=== PATIENT | female | born 1945 | race Caucasian/White ===

== ENCOUNTER → 2016-06-22 | Outpatient (CLI) | payer MEDICARE, OTHER ==
--- NOTE | 2016-06-22 22:44 | WWHP ---
DATE OF DICTATION: 06/22/2016 CHIEF COMPLAINT: The patient is here for her routine gynecologic exam. HISTORY OF PRESENT ILLNESS: This is a 71-year-old G3, P2-0-1-2 with an LMP of 2001. The patient is on low-dose HRT and denies any postmenopausal bleeding. She states she has initiated a wean to try to gradually discontinue HRT. She is now taking some HRT every other day because of hot flashes. The patient is without gynecologic complaints. PAST MEDICAL HISTORY: 1. Type 2 diabetes. 2. Elevated cholesterol. 3. Bursitis of the hip. 4. Essential tremor. 5. Mitral valve prolapse, which is asymptomatic. 6. Chronic proteinuria. 7. Focal osteopenia. MEDICATIONS: 1. Losartan 50 mg daily. 2. Tuojeo 14 units at bedtime. 3. Metformin 500 mg b.i.d. 4. FemHRT 0.5/2.5 one every other day. 5. Primidone 100 mg b.i.d. 6. Lipitor 20 mg daily. 7. Aspirin 81 mg daily. 8. Multivitamin daily. 9. Fish oil supplement daily. 10. Probiotic daily. 11. Calcium supplement with vitamin D b.i.d. ALLERGIES: BETA BLOCKERS, which caused facial swelling. PAST SURGICAL HISTORY: 1. Tubal ligation. 2. Disc surgery of the back. 3. Gamma radiation treatment to the left thalamus. 4. Colonoscopies in 2013 and 2015. 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 SOCIAL HISTORY: She denies tobacco and drug use and has about 7 alcoholic drinks per week. She is a and is not seeing anybody at this time. She is retired. FAMILY HISTORY: Unchanged from the 2016 H&P. REVIEW OF SYSTEMS: She has gained about 6 pounds over the last year. She denies respiratory, cardiac or GI problems. MUSCULOSKELETAL: She has been having some Achilles and knee problems. She denies maltreatment. She did fall when she was wearing a boot for her Achilles tendon, but she is no longer using the boot and is no longer having problems with falling. : She has occasional urge incontinence. PHYSICAL EXAM: Blood pressure 120/75. Height 5 feet 5 inches. Weight 191 pounds. Temperature 97.4, pulse 80. This is a well-developed, well-nourished white female who is alert and oriented x3, in no acute distress. HEENT is within normal limits. NECK: Supple without mass or thyromegaly. CHEST AND LUNGS: Clear to auscultation. HEART: Regular rate and rhythm. Breasts are without mass or discharge. Axillary exam is negative for adenopathy. BACK: Negative for CVA tenderness. ABDOMEN: Soft, nontender, without palpable masses. PELVIC EXAM: External genitalia reveal mild atrophy without lesions. Cervix and vagina reveal mild atrophy without lesions. There is no evidence of prolapse and there is no evidence of cystocele. The uterus is midposition, nongravid size and nontender. There are no palpable adnexal masses or tenderness. Rectovaginal exam is negative for mass or tenderness and is negative for occult blood. EXTREMITIES: Nontender. IMPRESSION: 1. A 71-year-old menopausal female with normal gynecologic exam. 2. History of osteopenia. 3. Occasional urge incontinence without any significant physical findings at this time. 4. The patient on low-dose HRT for menopausal symptoms. PLAN: 1. Pap smear was deferred, since she had a normal one last year. 2. Self breast examination was discussed. 3. Mammogram is due, and a slip was given to the patient for this. She would like to have this done at [facility]. 4. Osteoporosis prevention was discussed. A slip for a bone density test was given to the patient for this. 5. We have again had a long discussion regarding HRT as well as possible increased risk for heart attack, breast cancer, stroke and blood clots. I would like her to wean off of the HRT. She will continue to wean off of this and she will do this in the near future. 6. She does get flu shots in the fall. 7. Kegel exercises were recommended to see if they help with her symptoms. 8. She will return in one year. MINDY
== END | disposition home or self-care (01) ==
LOC: WWCWWP 10:48
PROVIDERS: ATTEND Obstetrics & Gynecology
DX: Z01.419 Encounter for gynecological examination (general) (routine) without abnormal findings (principal)

== ENCOUNTER → 2017-07-11 | Outpatient (CLI) | payer MEDICARE, OTHER ==
--- NOTE | 2017-07-11 14:21 | MR ---
EXAMINATION TYPE: MR angio head wo con DATE OF EXAM: 07/11/2017 COMPARISON: NONE HISTORY: CEREBRAL INFRACTION, Abnormal Eye testing with eye doctor TECHNIQUE: Time of flight images focusing on the [place] of [place] were performed without contrast.. 2-D and 3-D postprocessing imaging is performed on MRI scanner. FINDINGS: There is hypoplastic or very small caliber right vertebral artery. There is dominant left v ertebral artery. No aneurysmal change in posterior circulation is seen. There is hypoplastic left P1 segment with filling of P2 segment due to patent posterior communicating artery. There is small calib er but patent right posterior communicating artery seen near axial image 89. Images of the anterior circulation show patent anterior communicating artery. There is no significant focal stenosis or aneurysmal change identified. IMPRESSION: No aneurysmal change at the level of the [place] of [place].
--- NOTE | 2017-07-11 14:40 | MR ---
EXAMINATION TYPE: MR brain wo/w mrane wo/wcon DATE OF EXAM: 07/11/2017 COMPARISON: NONE HISTORY: CEREBRAL INFRACTION, Abnormal Eye testing with eye doctor. Left inferior quadrant vision los s. TECHNIQUE: Multiplanar, multisequence images of the neck focusing on carotid vessels, brain, and brainstem are a ll performed without and with IV contrast, utilizing 7.5 mL intravenous Gadavist . 2-D and 3-D recons tructed images are created on MRI scanner and reviewed FINDINGS: BRAIN: Diffusion weighted images demonstrate no evidence of a recent infarct or other diffusion abnormality. There is no worrisome extra-axial fluid collection. There is ventricular and sulcal prominence cons istent with diffuse cerebral atrophy. There are scattered foci of T2 hyperintensity seen throughout t he white matter bilaterally. Lesions are likely on basis of product of chronic small vessel ischemic change. Suspect subacute or old lacunar infarct left lateral thalamus seen best flair axial image 15. Corresponding T1 hypointense area noted on sagittal image. Some surrounding vascularity is present. No restricted diffusion is noted. Midline structures demonstrate normal morphology. The craniocervical junction appears within normal limits. Post contrast images demonstrate no abnormal enhancement. The dural venous sinuses appear pa tent. There is moderate mucosal thickening involving ethmoid sinuses bilaterally. There is mild to mo derate mucosal thickening involving the right maxillary sinus. The globes are intact bilaterally. IMPRESSION: 1. There is mild diffuse cerebral atrophy and mild to moderate chronic small vessel ischemic change. 2. No evidence of a recent infarct. Favor subacute lacunar infarct (3 weeks to 2 months in age) left thalamic level versus old infarct. 3. Chronic paranasal sinus disease as detailed above. MRA NECK: There is normal three-vessel origin from the aortic arch. The right common carotid artery shows will l origin from the right brachiocephalic artery. There is no significant stenosis in visualized portio n of right common or internal carotid arteries including at level of carotid bulb. There is motion ar tifact degradation present. There is patent right external carotid artery without significant stenosi s. There is no significant stenosis in visualized left common or internal carotid arteries including at level of left carotid bulb. There is patent external carotid artery which is suboptimally evaluated d ue to motion artifact. There is dominant left vertebral artery. Distal right vertebral artery becomes small caliber or occlu ded towards basilar junction. Left vertebral artery is patent. Bilateral subclavian arteries incidentally show no significant stenosis. IMPRESSION: No significant stenosis in common or internal carotid arteries bilaterally.
== END | disposition home or self-care (01) ==
LOC: RADMRIMAIN 12:27
PROVIDERS: ATTEND Psychiatry & Neurology Neurology
DX: G31.9 Degenerative disease of nervous system, unspecified (principal); I67.82 Cerebral ischemia; I63.59 Cerebral infarction due to unspecified occlusion or stenosis of other cerebral artery; I63.9 Cerebral infarction, unspecified; D49.6 Neoplasm of unspecified behavior of brain; H54.62 Unqualified visual loss, left eye, normal vision right eye; D18.00 Hemangioma unspecified site
CPT/HCPCS: 70544; 70549; 70553; A9581

== ENCOUNTER → 2017-07-12 | Outpatient (CLI) | payer MEDICARE, OTHER ==
[2017-07-12 09:45] VITALS: BP 109/67; PULSE 80; TEMP 98; BMI 32.2
--- NOTE | 2017-07-12 09:56 | P.HPOB ---
History of Present Illness H&P Date: 07/12/17 Chief Complaint: The patient is here for her routine gynecologic exam and mammogram. This is a 72-year-old with an LMP of 2001. The patient discontinued HRT earlier this year about 2 months ago. She states she has been doing well without HRT. She is without gynecologic complaints. She denies any postmenopausal bleeding. Review of Systems She has lost about 3 pounds over the last year. She denies respiratory, cardiac and G.I. problems. She denies maltreatment or problems with falling. : she denies any significant problems with urinary leakage. Past Medical History Past Medical History: Diabetes Mellitus (Type II diabetes), Hyperlipidemia, Mitral Valve Prolapse (MVP), Renal Disease (Chronic proteinuria) Additional Past Medical History / Comment(s): essential tremor, Focal osteopenia. Past TEST ENG history: she has no history of STDs. History of Any Multi-Drug Resistant Organisms: None Reported Past Surgical History: Back Surgery, Orthopedic Surgery (Disk surgery of the back), Tubal Ligation Additional Past Surgical History / Comment(s): Gamma radiation treatment to the left thalamus. Colonoscopies in 2013 and 2015. Past Psychological History: No Psychological Hx Reported Smoking Status: Never smoker Past Alcohol Use History: Occasional (3 per week) Past Drug Use History: None Reported Additional History: She is a and is not seeing anybody at this time. She is retired. Medications and Allergies Home Medications Medication Instructions Recorded Confirmed Type Aspirin EC [Ecotrin] 81 mg PO DAILY 11/25/14 07/12/17 History Atorvastatin [Lipitor] 20 mg PO HS 11/25/14 11/25/14 History Cholecalciferol [Vitamin D3] 2,000 unit PO DAILY@1200 11/25/14 07/12/17 History Latanoprost [Xalatan 0.005%] 1 drop RIGHT EYE HS 11/25/14 07/12/17 History Losartan [Cozaar] 50 mg PO DAILY 11/25/14 07/12/17 History Multivitamins, Thera [Theragran] 1 each PO DAILY@1200 11/25/14 07/12/17 History Gilliam-3 Fatty Acids [Gilliam-3] 1,000 mg PO 11/25/14 11/25/14 History Primidone [Mysoline] 500 mg PO BID 11/25/14 07/12/17 History metFORMIN HCL [Glucophage] 500 mg PO BID 11/25/14 07/12/17 History Insulin Glargine,Hum.rec.anlog ml INJ DAILY 07/12/17 History [Johnathan Ashley] Allergies Allergy/AdvReac Type Severity Reaction Status Date / Time Beta-Blockers Allergy Unknown Verified 07/12/17 09:20 (Beta-Adrenergic Bloc Exam - Vital Signs Vital signs: Blood pressure 109/67, height 5'4", weight 188 pounds, BMI 32.3, tempter 90.0, pulse 80. This is a well-developed well-nourished white female who is alert and oriented times 3 in no acute distress. HEENT: Within normal limits. NECK: Supple without mass or thyromegaly. CHEST AND LUNGS: Clear to auscultation. HEART: Regular rate and rhythm. BREASTS: Are without mass or discharge. AXILLARY EXAM: Negative for adenopathy. BACK: Negative for CVA tenderness. ABDOMEN: Soft, nontender, without palpable masses. PELVIC EXAM: Normal external genitalia with mild to moderate atrophy. Cervix and vagina appear normal with mild to moderate atrophy. There is no unusual discharge. There is no evidence of prolapse. The uterus is midposition, nongravid size and nontender. There are no palpable adnexal masses or tenderness. RECTAL EXAM: rectovaginal exam is negative for mass or tenderness and is negative for occult blood. EXTREMITIES: Nontender. There is limited range of motion of both shoulders and she states she has had chronic shoulder problems. IMPRESSION: 1. 72-year-old menopausal female with normal gynecological exam. 2. History of osteopenia. 3. The patient is doing well off of HRT. PLAN: 1. Pap smear was performed. 2. Self breast awareness was discussed. 3. Screening mammogram will be done today. 4. Osteoporosis prevention was discussed. We will plan on repeating bone density testing next year. 5. She did receive a flu shot last fall. 6. She will return in one year.
--- NOTE | 2017-07-13 10:55 | MM ---
Reason for exam: screening (asymptomatic). Last mammogram was performed 1 year ago. History: Patient is postmenopausal. Taking estrogen for 8 years 2 months beginning at age 57. Taking progesterone for 8 years 2 months beginning at age 57. Physical Findings: A clinical breast exam by your physician is recommended on an annual basis and results should be correlated with mammographic findings. MG 3D Screening Mammo W/Cad Bilateral CC and MLO view(s) were taken. Prior study comparison: July 01, 2016, mammogram, performed at [facility]. February 11, 2012, [facility] DIGITAL RIGHT MAMMOGRAM w/CAD. February 04, 2012, bilateral digital screening mammo w/CAD. There are scattered fibroglandular densities. No suspicious abnormality. There is a stable right upper outer quadrant focal asymmetry. Right benign calcifications. ASSESSMENT: Benign, BI-RAD 2 RECOMMENDATION: Routine screening mammogram of both breasts in 1 year.
== END | disposition home or self-care (01) ==
LOC: WWCWWP 08:21
PROVIDERS: ATTEND Obstetrics & Gynecology
DX: Z12.31 Encounter for screening mammogram for malignant neoplasm of breast (principal)
CPT/HCPCS: 77063; 77067

== ENCOUNTER → 2017-09-27 | Outpatient (CLI) | payer MEDICARE, OTHER ==
[2017-09-27 10:29] LABS: HCT 36.2 % (34.0-46.0); HGB 12.1 gm/dL (11.4-16.0); MCH 33.4 pg (25.0-35.0); MCHC 33.5 g/dL (31.0-37.0); MCV 99.6 fL (80.0-100.0); Mean Platelet Volume 6.8; Platelet Count 240 k/uL (150-450); RBC 3.64 m/uL (3.80-5.40); RDW 12.6 % (11.5-15.5); WBC 3.8 k/uL (3.8-10.6)
--- NOTE | 2017-09-27 13:40 | NM ---
EXAMINATION TYPE: NM bone/joint limited DATE OF EXAM: 09/27/2017 COMPARISON: NONE HISTORY: Left hip pain TECHNIQUE: After the intravenous administration of 25.2 mCi Tc 99m MDP. Images acquired 3 hours pos t injection. Multiple views of pelvis are submitted. There is intense abnormal uptake along the greater trochanter of the left hip. Mild uptake along the greater trochanter of the right hip. IMPRESSION: 1. Abnormal uptake involving the greater trochanter of the left hip. X-ray correlation is suggested. This could be seen with severe trochanteric bursitis, contusion or posttraumatic injury. Recommend x- ray correlation.
[2017-09-27 15:59] LABS: Protein, Total 6.4 g/dL (6.2-8.2)
[2017-09-29 09:46] LABS: Albumin 3.99 g/dL (3.80-4.90); Gamma Globulin 0.86 g/dL (0.70-1.50)
== END | disposition home or self-care (01) ==
LOC: RADNMMAIN 09:27
PROVIDERS: ATTEND Orthopaedic Surgery
DX: M16.12 Unilateral primary osteoarthritis, left hip (principal); R93.7 Abnormal findings on diagnostic imaging of other parts of musculoskeletal system; E11.9 Type 2 diabetes mellitus without complications; M54.5 Low back pain
CPT/HCPCS: 85027; 84165; 78300; 36415; A9503

== ENCOUNTER → 2018-08-08 | Outpatient (CLI) | payer MEDICARE, OTHER ==
[2018-08-08 16:48] VITALS: BP 108/69; PULSE 74; RESP 18; TEMP 97.9; BMI 32.9
--- NOTE | 2018-08-08 17:01 | P.HPOB ---
History of Present Illness H&P Date: 08/08/18 Chief Complaint: The patient is here for her routine gynecologic exam and ma mmogram. This is a 73-year-old with an LMP of 2001. The patient is without gynecologic complaints. She has been off of HRT for more than one year. Review of Systems She is gained 4 pounds over the last year. She denies respiratory, cardiac and G.I. problems. She denies maltreatment or problems with falling. : occasional urinary leakage if she does not get to the bathroom in time. Past Medical History Past Medical History: Diabetes Mellitus, Hyperlipidemia, Mitral Valve Prolapse (MVP), Renal Disease Additional Past Medical History / Comment(s): Type II diabetes, chronic proteinuria essential tremor, Focal osteopenia. 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 History of Any Multi-Drug Resistant Organisms: None Reported Past Surgical History: Back Surgery, Orthopedic Surgery, Tubal Ligation Additional Past Surgical History / Comment(s): Gamma radiation treatment to the left thalamus. Colonoscopies in 2013 and 2015. Past Psychological History: No Psychological Hx Reported Smoking Status: Never smoker Past Alcohol Use History: Daily (2 per day) Past Drug Use History: None Reported Additional History: The patient is a and is retired. 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 - Past Family History Mother Family Medical History: Cancer Additional Family Medical History / Comment(s): Cancer of the esophagus. Alcohol abuse. Father Additional Family Medical History / Comment(s): History of alcohol abuse. Medications and Allergies Home Medications Medication Instructions Recorded Confirmed Type Aspirin EC [Ecotrin] 81 mg PO DAILY 11/25/14 08/08/18 History Atorvastatin [Lipitor] 20 mg PO HS 11/25/14 08/08/18 History Cholecalciferol [Vitamin D3] 2,000 unit PO DAILY@1200 11/25/14 08/08/18 History Latanoprost [Xalatan 0.005%] 1 drop RIGHT EYE 11/25/14 08/08/18 History Losartan [Cozaar] 50 mg PO DAILY 11/25/14 08/08/18 History Multivitamins, Thera [Theragran] 1 each PO DAILY@1200 11/25/14 07/12/17 History [place]-3 Fatty Acids [[place]-3] 1,000 mg PO 11/25/14 11/25/14 History metFORMIN HCL [Glucophage] 500 mg PO BID 11/25/14 08/08/18 History Insulin Glargine,Hum.rec.anlog ml INJ DAILY 07/12/17 History [Johnathan Davey Solostar] Calcium Carbonate [Calcium] 600 mg PO 08/08/18 History Inulin/Chromium Picolinate [Fiber 1 each PO 08/08/18 History Gummies Chew] Ubidecarenone [Co Q-10] 100 mg PO 08/08/18 History Allergies Allergy/AdvReac Type Severity Reaction Status Date / Time Beta-Blockers Allergy Unknown Verified 08/08/18 16:49 (Beta-Adrenergic Bloc Exam Vital Signs Temp Pulse Resp BP Pulse Ox 08/08/18 16:44 97.9 F 74 18 108/69 99 Height 5'4", weight 192 pounds, BMI 33.0. This is a well-developed well-nourished white female who is alert and oriented times 3 in no acute distress. HEENT: Within normal limits. NECK: Supple without mass or thyromegaly. CHEST AND LUNGS: Clear to auscultation. HEART: Regular rate and rhythm. BREASTS: Are without mass or discharge. AXILLARY EXAM: Negative for adenopathy. BACK: Negative for CVA tenderness. ABDOMEN: Soft, nontender, without palpable masses. PELVIC EXAM: Normal external genitalia with mild to moderate atrophy. Cervix and vagina appear normal with mild to moderate atrophy. There is no unusual discharge. There is no evidence of prolapse. The uterus is midposition, nongravid size and nontender. There are no palpable adnexal masses or tenderness. RECTAL EXAM: vaginal exam is negative for mass or tenderness and is negative for occult blood. EXTREMITIES: Nontender. IMPRESSION: 1. 73-year-old menopausal female with normal gynecologic exam. 2. History of osteopenia. PLAN: 1. Pap smear was deferred since she had a normal one on 07/12/2017. I will try to review her records from Dr. Taylor. If I can confirm she has had adequate cervical screening without significant abnormalities, we will consider discontinuing Pap smears. 2. Self breast awareness was discussed with the patient. 3. Screening mammogram will be done today. 4. Osteoporosis prevention was discussed. I have stressed the importance of adequate calcium, vitamin D and regular exercise. Recommended amounts of calcium and vitamin D were also discussed. I have recommended repeating the bone density test since her last one was on 07/01/2016. She would like to do this next year. 5. She does get flu shots in the fall. 6.She was advised to return in one year for her annual well woman exam.
--- NOTE | 2018-08-09 10:53 | MM ---
Reason for exam: screening (asymptomatic). Last mammogram was performed 1 year and 1 month ago. History: Patient is postmenopausal. Taking estrogen for 8 years 2 months beginning at age 57. Taking progesterone for 8 years 2 months beginning at age 57. Physical Findings: A clinical breast exam by your physician is recommended on an annual basis and results should be correlated with mammographic findings. MG 3D Screening Mammo W/Cad Bilateral CC and MLO view(s) were taken. Prior study comparison: July 12, 2017, bilateral MG 3d screening mammo w/cad. July 01, 2016, mammogram, performed at [facility]. The breast tissue is heterogeneously dense. This may lower the sensitivity of mammography. No suspicious abnormality. No significant changes when compared with prior studies. ASSESSMENT: Negative, BI-RAD 1 RECOMMENDATION: Routine screening mammogram of both breasts in 1 year.
== END | disposition home or self-care (01) ==
LOC: WWCWWP 16:36
PROVIDERS: ATTEND Obstetrics & Gynecology
DX: Z12.31 Encounter for screening mammogram for malignant neoplasm of breast (principal)
CPT/HCPCS: 77063; 77067

== ENCOUNTER → 2018-12-26 | Outpatient (CLI) | payer MEDICARE, OTHER ==
--- NOTE | 2018-12-26 09:00 | CT ---
EXAMINATION TYPE: CT shoulder RT wo con DATE OF EXAM: 12/26/2018 COMPARISON: None. HISTORY: 73-year-old female Pain in right shoulder TECHNIQUE: Contiguous axial scanning of the right shoulder without IV contrast. Coronal and sagittal reconstructions performed. CT DLP: 385 mGycm Automated exposure control for dose reduction was used. FINDINGS: Severe degenerative change at the acromioclavicular joint. Large anterior inferior acromial spur with pseudoarticulation with the humeral head. Severe fatty atrophy of both supraspinatus and infraspinat us muscle bellies. Subscapularis muscle bulk relatively maintained. Large bony spurring along the bicipital groove and severe loss of cartilage and joint space within th e glenohumeral joint with prominent marginal spurring. 1.1 cm loose body within the superior subscapu lora recess. Overall neutral glenoid version and mild overall loss of glenoid bone stalk. IMPRESSION: 1. MASSIVE ROTATOR CUFF TEAR INVOLVING THE ENTIRE SUPRASPINOUS AND INFRASPINATUS TENDONS WITH ADVANCE D FATTY ATROPHY OF THEIR MUSCLE BELLIES. 2. LOSS OF THE SUBACROMIAL SPACE WITH A BULKY REMODELED BONY SPUR FROM THE ANTERIOR INFERIOR ACROMION SECONDARY TO PSEUDOARTICULATION WITH THE HUMERAL HEAD. 3. SEVERE GLENOHUMERAL JOINT OA. MILD OVERALL LOSS OF GLENOID BONE STOCK WITH NEUTRAL GLENOID VERSION . A 1.1 CM ANTERIOR LOOSE BODY. 4. LARGE BONE SPUR ALONG THE BICIPITAL GROOVE AND SEVERE AC JOINT OA.
== END | disposition home or self-care (01) ==
LOC: RADCTMAIN 07:16
PROVIDERS: ATTEND Orthopaedic Surgery Sports Medicine
DX: M19.011 Primary osteoarthritis, right shoulder (principal); M75.101 Unspecified rotator cuff tear or rupture of right shoulder, not specified as traumatic; M67.813 Other specified disorders of tendon, right shoulder; E11.9 Type 2 diabetes mellitus without complications

== ENCOUNTER → 2019-03-02 | Outpatient (CLI) | payer MEDICARE, OTHER ==
[2019-03-02 11:58] LABS: Appearance,Urine Clear (Clear); Bilirubin,Urine Negative (Negative); Blood,Urine Negative (Negative); Color,Urine Light Yellow; Glucose,Urine (UA) Negative (Negative); Ketones,Urine Negative (Negative); Leukocyte Esterase,Urine Negative (Negative); Nitrite,Urine Negative (Negative); Protein,Urine Negative (Negative); Specific Gravity,Urine 1.005 (1.001-1.035); Urobilinogen,Urine <2.0 mg/dL (<2.0)
[2019-03-02 12:03] LABS: INR 0.9 (<1.2); Partial Thromboplastin Time 24.4 sec (22.0-30.0); Prothrombin Time 9.8 sec (9.0-12.0)
[2019-03-02 12:05] LABS: HCT 37.3 % (34.0-46.0); HGB 12.4 gm/dL (11.4-16.0); MCH 33.4 pg (25.0-35.0); MCHC 33.2 g/dL (31.0-37.0); MCV 100.7 fL (80.0-100.0); Mean Platelet Volume 7.3; Platelet Count 258 k/uL (150-450); RDW 12.6 % (11.5-15.5)
[2019-03-02 12:07] LABS: ALT 24 U/L (4-34); AST 24 U/L (14-36); African American GFR (CKD) >90 (>60 ml/min/1.73 sqM); Albumin 4.5 g/dL (3.5-5.0); Alkaline Phosphatase 51 U/L (38-126); Anion Gap 8 mmol/L; Blood Urea Nitrogen 32 mg/dL (7-17); Calcium 10.6 mg/dL (8.4-10.2); Carbon Dioxide 28 mmol/L (22-30); Chloride 106 mmol/L (98-107); Glucose 99 mg/dL (74-99); Non-African American GFR(CKD) 85 (>60 ml/min/1.73 sqM); Potassium 4.7 mmol/L (3.5-5.1); Sodium 142 mmol/L (137-145); Total Bilirubin 0.6 mg/dL (0.2-1.3); Total Protein 7.3 g/dL (6.3-8.2)
== END | disposition home or self-care (01) ==
LOC: LABPAT 11:13
PROVIDERS: ATTEND Orthopaedic Surgery Sports Medicine
DX: Z01.812 Encounter for preprocedural laboratory examination (principal); Z51.81 Encounter for therapeutic drug level monitoring; Z79.01 Long term (current) use of anticoagulants
CPT/HCPCS: 36415; 80053; 81003; 85027; 85610; 85730; 87070

== ENCOUNTER 2019-03-14 13:45 | Inpatient (IN) | payer MEDICARE, OTHER ==
[2019-03-08 11:21] VITALS: BMI 30.9
[~2019-03-14 13:45] MED LIST: ACETAMINOPHEN TAB 500 MG TAB PO ONE; DEXAMETHASONE SOD PHOSPHATE 10 MG/ML 1 ML VIAL IV ONE; GABAPENTIN 300 MG CAP PO ONE; LIDOCAINE 1% 20 ML VIAL (10MG/ML) FOR IV START INTRADERMA PRN; MIDAZOLAM 2 MG/2 ML VIAL IV PRN; ONDANSETRON 4 MG/2 ML VIAL IVP ONE; TRANEXAMIC ACID 1,000 MG in SODIUM CHLORIDE 0.9% 100 ML IVPB ONE; fentaNYL (PF) 50 MCG/ML 2 ML AMP IVP PRN
[2019-03-14 15:08] LABS: Glucose,Whole Blood 98 mg/dL (75-99)
[2019-03-14] MEDS: LACTATED RINGERS 1,000 ML IV SCH ×3 (15:13→23:03)
[2019-03-14] MEDS ORDERED: ONDANSETRON 4 MG/2 ML VIAL IVP PRN (16:21)
[2019-03-14] MEDS ORDERED: TEMAZEPAM 15 MG CAP PO PRN (16:21)
[2019-03-14] MEDS ORDERED: HYDROmorphone 0.5 MG/0.5 ML SYRINGE IVP PRN ×3 (16:21)
[2019-03-14] MEDS ORDERED: SENNOSIDES-DOCUSATE SODIUM 1 EACH TAB PO PRN (16:21)
[2019-03-14] MEDS ORDERED: diphenhydrAMINE 25 MG CAP PO PRN (16:21)
[2019-03-14] MEDS ORDERED: METOCLOPRAMIDE 5 MG/ML 2 ML VIAL IVP PRN (16:21)
[2019-03-14] MEDS ORDERED: HYDROcodone/APAP 5-325MG 1 EACH TAB PO PRN (16:21)
[2019-03-14] MEDS ORDERED: GLYCOPYRROLATE 0.2 MG/ML 2 ML VIAL ONE (16:40)
[2019-03-14] MEDS ORDERED: SUCCINYLCHOLINE CHLORIDE 100 MG/5 ML SYR IV ONE (16:40)
[2019-03-14] MEDS ORDERED: fentaNYL (PF) 50 MCG/ML 2 ML AMP ONE (16:40)
[2019-03-14] MEDS ORDERED: SODIUM CHLORIDE 0.9% 100 ML BAG ONE (16:40)
[2019-03-14] MEDS ORDERED: NEOSTIGMINE 1 MG/ML 10 ML VIAL ONE (16:40)
[2019-03-14] MEDS ORDERED: HYDROmorphone (PF) 1 MG/ML ONE (16:40)
[2019-03-14] MEDS ORDERED: ROCURONIUM BROMIDE 10 MG/ML 10 ML VIAL IV ONE (16:40)
[2019-03-14] MEDS ORDERED: ROPIVACAINE 5 MG/ML 30 ML VIAL ONE (16:40)
[2019-03-14] MEDS ORDERED: MIDAZOLAM 2 MG/2 ML VIAL ONE (16:40)
[2019-03-14] MEDS ORDERED: LIDOCAINE 1% INJ 10MG/ML (20 ML MDV) ONE (16:40)
[2019-03-14] MEDS ORDERED: PROPOFOL 10 MG/ML 20 ML VIAL IV ONE (16:40)
[2019-03-14] MEDS ORDERED: TRANEXAMIC ACID 1,000 MG/10 ML VIAL ONE (16:40)
[2019-03-14] MEDS ORDERED: ceFAZolin 3,000 MG in SODIUM CHLORIDE 0.9% IRRIGATIO 3,000 ML IRRIGATION ONE (17:20)
[2019-03-14] MEDS ORDERED: VANCOMYCIN 1,000 MG VIAL MISCELLANE ONE (17:30)
[2019-03-14] MEDS ORDERED: LACTATED RINGERS 1,000 ML IV ONE (18:17)
[2019-03-14] MEDS: HYDROmorphone 0.5 MG/0.5 ML SYRINGE IVP PRN ×5 (19:10→19:36)
--- NOTE | 2019-03-14 19:29 | XR ---
EXAMINATION TYPE: XR shoulder limited RT DATE OF EXAM: 03/14/2019 COMPARISON: NONE HISTORY: Shoulder surgery TECHNIQUE: Single view. There is right shoulder prosthesis. Components appear in anatomic position. Impression No complicating process seen.
--- NOTE | 2019-03-14 19:59 | P.ANPRN ---
Procedure Note - Anesthesia - Nerve Block Performed Right Interscalene Single Time Out Performed: Yes Date of Procedure: 03/14/19 Procedure Start Time: 19:40 Procedure Stop Time: 19:52 Location of Patient: Phase I Indication: Requested by Surgeon Specifically requested for management of pain by DrTasneem: Alen Wesley Sedation Type: Sedate with meaningful contact maintained Preparation: Sterile Prep Position: Supine Needle Types: Pajunk Needle Gauge: 21 Ultrasound used to visualize needle placement: Yes Ultrasound used to observe medication spread: Yes Injectate: 0.5% Ropivacaine (see comment for volume) (25 ml) Blood Aspirated: No Pain Paresthesia on Injection Noted: No Resistance on Injection: Normal Image Stored and Saved: Yes Events: Uneventful and Well Tolerated
[2019-03-14 20:22] LABS: Glucose,Whole Blood 175 mg/dL (75-99)
[2019-03-15] MEDS: HYDROcodone/APAP 5-325MG 1 EACH TAB PO PRN ×2 (00:17→07:39)
[2019-03-15] MEDS: LACTATED RINGERS 1,000 ML IV SCH (05:55)
[2019-03-15 07:03] LABS: Glucose,Whole Blood 188 mg/dL (75-99)
[2019-03-15 07:51] LABS: Basophils % (A) 0 %; Eosinophils % (A) 0 %; HCT 35.4 % (34.0-46.0); HGB 11.5 gm/dL (11.4-16.0); Lymphocytes # (A) 0.7 k/uL (1.0-4.8); Lymphocytes % (A) 14 %; MCH 33.1 pg (25.0-35.0); MCHC 32.6 g/dL (31.0-37.0); MCV 101.3 fL (80.0-100.0); Mean Platelet Volume 7.3; Monocytes # (A) 0.3 k/uL (0-1.0); Monocytes % (A) 7 %; Neutrophils # (A) 3.8 k/uL (1.3-7.7); Neutrophils % (A) 78 %; Platelet Count 237 k/uL (150-450); RBC 3.49 m/uL (3.80-5.40); RDW 12.6 % (11.5-15.5)
[2019-03-15 08:27] VITALS: BP 127/71; PULSE 93; RESP 15; TEMP 97.5
--- NOTE | 2019-03-15 09:35 | OP ---
OPERATIVE REPORT DATE OF PROCEDURE: 03/14/2019 SURGEON: Alen Wesley MD BIOMECHANICAL ENGINEER: Yoshi DARBY. PREOPERATIVE DIAGNOSIS: Right shoulder osteoarthrosis. POSTOP DIAGNOSIS: Right shoulder osteoarthrosis. OPERATION: Right reverse total shoulder arthroplasty. ANESTHESIA: General endotracheal. ESTIMATED BLOOD LOSS: 200 mL. DRAINS: One deep drain. COMPLICATIONS: None apparent. DISPOSITION: Postanesthesia care unit. INDICATIONS: Brandy is a very pleasant 73-year-old female with longstanding right shoulder pain. Workup including x-rays and CT scan revealed advanced osteoarthrosis of the right shoulder. At this point, it was felt that she has failed conservative management and she would like to proceed with operative intervention. The risks and procedure were discussed with her in detail. These risks include, but are not limited to risk of infection, nerve damage, bleeding, pain, instability in the shoulder, loosening of the implants and deep infection. There is also risk of deep vein thrombosis which could lead to fatal pulmonary embolism. Further risks also include periprosthetic fracture. The patient understands the risks. All of her questions with regard to the risks of the procedure were answered to her satisfaction. An appropriate informed consent was obtained. DESCRIPTION OF THE PROCEDURE: Patient identified in the preoperative holding area. Surgical sites marked by both the patient and myself. She was given 2 g of Ancef IV for prophylactic purposes. She was then transferred to the operative suite. She was placed supine on the operative table. General anesthetic was then administered, dosed per the Anesthesia Department without apparent complication. Examination under anesthesia was then performed. She had elevation of 120 degrees. External rotation at the side was to 20 degrees. The patient was then placed into the beach chair position well-padded in preparation for surgery. Great care was taken to ensure that her cervical spine is in neutral alignment, well-padded and maintained that way throughout the operative procedure. Great care was also taken to ensure that her legs were appropriately padded as well. The patient's right upper extremity than prepped and draped in usual sterile fashion. Standard surgical pause undertaken to ensure that we were operating the correct site and that appropriate preoperative antibiotics were given. All staff in the room were in agreement. We proceeded. The acromion AC joint, clavicle, and coracoid were marked surgical pen. A planned incision starting at the level of the clavicle extending distally over the deltopectoral interval approximately 1 cm lateral to the coracoid was marked with surgical pen. The incision was then made with a 10 blade scalpel. Dissection carried down sharply to the deltoid fascia. Hemostasis was achieved with electrocautery. The deltopectoral interval was identified at the level of the clavicle. A small band retractor was then placed onto the proximal deltoid. Then released deltoid fascia on the lateral aspect of the cephalic vein. The vein was left in its bed medially. The cephalic vein was protected throughout the entire case. I then identified the clavipectoral fascia. This was incised proximally to the level of the coracoacromial ligament. The coracoacromial ligament was left intact. I then used my finger to spread the interval between the conjoint tendon and the subscapularis. I felt for the axillary nerve which was readily palpable. I then cleared the subdeltoid and subacromial spaces of bursal and scar tissue. She had extensive subacromial and subdeltoid space scar tissue. It was noted at this point that her supraspinatus and infraspinatus were completely, chronically torn. I then utilized a Brown retractor to hold the deltoid and expose the humeral head. I then proceeded with release of the subscapularis and the anterior, inferior shoulder capsule. The rotator cuff again was inspected. 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 The subscapularis and the capsule were then released intratendinously. The subscapularis and capsule release extended distally in a lazy-S fashion, approximately 1 cm medial to the biceps tendon. I then continued to release the capsule along the inferior neck in a vertical fashion to approximately the 6 o'clock position. Great care was taken to ensure that the capsule was always visualized as it was released as to avoid any iatrogenic injury to the axillary nerve. I then brought a Abdi aboriginal education teacher with arm externally rotated and abducted. I continued to release the capsule inferomedially to the 4 o'clock position. The inferior osteophytes were now removed as well. This was done with a rongeur. I then proceeded with preparation of the humerus. I removed all the goat's ko osteophytes. I then removed the subchondral plate from the superior aspect of the humeral head utilizing a large rongeur. I then utilized a starting reamer to gain access to the humeral canal. This was approximately 1 cm medial to the rotator cuff insertion and 1 cm posterior to the bicipital groove. I then prepared the humeral canal with hand reaming. I started with an 11 mm reamer and progressed in 1 mm increments until firm resistance was encountered. This was at 11 mm. The reamer handle was then left in place. I then utilized a humeral resection guide set at 30 degrees of retrotorsion. The cutting block was set at the level of the insertion of the rotator cuff. I then proceeded to osteotomized the humeral head with an oscillating saw. I removed the resection guide and then completed the osteotomy. I then proceeded with trial stem placement. I then broached the canal starting with a size 6 broach and then broached up to an 11 broach. The 11 mm broach was then left in place. At this point, a bone hook was then used to pull the humerus out laterally. I inspected the joint from any with any loose bodies. The condition of the cuff was again inspected. The proximal humerus was completely devoid of supraspinatus and infraspinatus attachment. The Bhattman retractor was then placed on the posterior glenoid rim. The arm was then placed in approximately 70-80 degrees of abduction and in slight flexion on the Abdi stand. I then proceeded to remove the hypertrophic labrum to definitively identify the actual glenoid. I then utilized the guide for a mini base plate. The starting pin was then placed in 10 degrees of inferior tilt and in the center of the glenoid. I then over-reamed with the mini base plate reamer. Again this was preferentially taken and placed in 10 degrees of inferior tilt. I then placed the mini base plate. It was impacted into the glenoid. I then proceeded with placement of a central screw. A 35 mm central screw was utilized. It had an outstanding purchase in bone. I was able to rotate the scapula with the screwdriver, once the screw was firmly seated. I then placed the 4 peripheral locking screws. These were 5 mm screws. The superior and inferior screws were 25 mm and the anterior-posterior screws were 15 mm. I then placed a 36 glenosphere. This was impacted on the Hanson taper. It had been offset preferentially inferiorly. The glenosphere was seated firmly on a dried Hanson taper. I then proceeded to trial with the real glenosphere in place. I started with a standard poly and a standard tray. It was a fairly difficult reduction. The shoulder was very stable with a poly and standard tray. I made a decision to go forward with polystandard tray. The shoulder was then carefully redislocated. The trial components were removed. The glenohumeral joint was thoroughly irrigated with sterile saline solution with antibiotic added. I then had the bilingual call center representative open a Biomet size 11 mini stem, a standard base plate and a standard poly. The poly was impacted onto the base plate. The 11 mini stem was then impacted into the proximal humerus in approximately 30 degrees of retrotorsion. The Hanson taper was dried and the standard base plate and poly were then impacted onto the Hanson taper. The shoulder was then reduced. Again it was a fairly difficult reduction. The shoulder was very stable once reduced. She had internal rotation to the belly and elevation to 150 degrees with the implant in. I then used my finger to feel for the axillary nerve and it was readily palpable. At this point, I proceeded to assess for repair of the subscapularis. I was able to bring the subscapularis back to the to the lesser tuberosity. The subscapularis was repaired with #2 Vicryl interrupted sutures. Again the wound was thoroughly irrigated with sterile saline with antibiotic added. Approximately 500 mg of vancomycin powder was then placed deep. A drain was then brought out superiorly away from the incision. I then closed the deltopectoral interval with 0 Vicryl interrupted suture. Again the subcutaneous tissue and deltoid were then irrigated with sterile saline with antibiotic added. The remaining 500 mg of vancomycin powder was then placed subcutaneously. The subcutaneous tissue was then closed with 2-0 Vicryl interrupted suture. The skin was closed with 3-0 Quill suture. Dermabond was applied to the incision. Sterile compressive dressing was then applied. The patient's right upper extremity was placed in a standard sling. All sponge and needle counts were deemed correct prior to closure. The patient tolerated the procedure without apparent complication. She was transferred to the recovery room in stable condition. MMODL / IJN: [id number] /
[2019-03-15 11:36] LABS: Glucose,Whole Blood 153 mg/dL (75-99)
--- NOTE | 2019-03-15 12:34 | P.CONS ---
History of Present Illness - Reason for Consult Consult date: 03/15/19 Medical management Requesting physician: Alen Wesley - Chief Complaint Right shoulder surgery - History of Present Illness Consultation: This is a very pleasant 73-year-old patient of Dr. Davidson. Patient has undergone right shoulder reverse arthroplasty, total. Postprocedure slight pain is present. Right orbital swelling. No nausea vomiting. Did tolerate some breakf ast. Chronic stable medical conditions include diabetes, hyperlipidemia, mitral valve prolapse, essential tremor, obstructive sleep apnea for which she uses a dental device. Denies any cardiac history. Otherwise comfortable. It has been up to the bathroom. Review of systems: GEN.: None EYES: None HEENT: None NECK: None RESPIRATORY: None CARDIOVASCULAR: None GASTROINTESTINAL: None GENITOURINARY: None MUSCULOSKELETAL: Pain right shoulder LYMPHATICS: None HEMATOLOGICAL: None PSYCHIATRY: None NEUROLOGICAL: Tremors Social history: Does not smoke. Alcohol occasionally. Lives alone. Physical examination: VITAL SIGNS: 97.5, 93, 15, 127/71, 96% room air GENERAL: BMI 31.9, laying in bed, awake. EYES: Pupils equal. Conjunctiva normal. HEENT: External appearance of nose and ears normal, oral cavity grossly normal. NECK: JVD not raised; masses not palpable. HEART: First and second heart sounds are normal; no edema. LUNGS: Respiratory rate normal; clear to auscultation. ABDOMEN: Soft, nontender, liver spleen not palpable, no masses palpable. PSYCH: Alert and oriented x3; mood and affect normal. NEUROLOGICAL: Cranial nerves grossly intact; no facial asymmetry, power and sensation grossly intact. Tremors LYMPHATICS: No lymph nodes palpable in the axilla and neck MUSCULOSKELETAL: Dressing over the right shoulder, right arm in a sling Investigations: White count 5 hemoglobin 11.5 Accu-Cheks 188, 153 Assessment: -Right total shoulder arthroplasty total, reverse -Diabetes mellitus type 2 -Hyperlipidemia -Mitral valve prolapse -Obstructive sleep apnea uses a dental device -Essential tremor Plan: Care was discussed with the patient. Home medications resumed. Accu-Cheks are being followed. If patient is discharged with follow-up with her family doctor within the week Thank you Dr. Wesley Past Medical History Past Medical History: Diabetes Mellitus, Hyperlipidemia, Mitral Valve Prolapse (MVP), Renal Disease, Sleep Apnea/CPAP/BIPAP Additional Past Medical History / Comment(s): chronic proteinuria essential tremor, treated on right side, still has on left side, wears a dental device for sleep apnea, 'slight leak' for the mitral valve prolapse, trigger finger History of Any Multi-Drug Resistant Organisms: None Reported Past Surgical History: Back Surgery, Orthopedic Surgery, Tubal Ligation Additional Past Surgical History / Comment(s): Gamma radiation treatment to the left thalamus, laser for treatment of rt eye glaucoma, colonoscopy, back surgery x2, D&C, anterior and posterior repair of bowel and bladder Past Anesthesia/Blood Transfusion Reactions: Postoperative Nausea & Vomiting (PONV) Past Psychological History: No Psychological Hx Reported Smoking Status: Never smoker Past Alcohol Use History: Occasional Past Drug Use History: None Reported - Past Family History Mother Family Medical History: Cancer Additional Family Medical History / Comment(s): Cancer of the esophagus. Alcohol abuse. Father Additional Family Medical History / Comment(s): hx of alchohol abuse. Medications and Allergies Home Medications Medication Instructions Recorded Confirmed Type Aspirin EC [Ecotrin] 81 mg PO DAILY 11/25/14 03/14/19 History Atorvastatin [Lipitor] 20 mg PO 11/25/14 03/14/19 History Cholecalciferol [Vitamin D3] 2,000 unit PO DAILY@1200 11/25/14 03/14/19 History Latanoprost [Xalatan 0.005%] 1 drop BOTH EYES 11/25/14 03/14/19 History Losartan [Cozaar] 50 mg PO QAM 11/25/14 03/14/19 History Multivitamins, Thera [Theragran] 1 each PO DAILY@1200 11/25/14 03/14/19 History Jackson-3 Fatty Acids [Jackson-3] 2 tab PO DAILY 11/25/14 03/14/19 History metFORMIN HCL [Glucophage] 500 mg PO BID 11/25/14 03/14/19 History Insulin Glargine,Hum.rec.anlog 14 unit SQ HS 07/12/17 03/14/19 History [Toujeo Max Solostar] Calcium Carbonate [Calcium] 600 mg PO DAILY 08/08/18 03/14/19 History Ubidecarenone [Co Q-10] 1 tab PO DAILY 08/08/18 03/14/19 History Ibuprofen [Motrin] 800 mg PO Q6H PRN 03/08/19 03/14/19 History Menthol [Biofreeze] 1 applic TOPICAL DIRECTED PRN 03/08/19 03/14/19 History Docusate [Colace] 100 mg PO BID #60 capsule 03/15/19 Rx HYDROcodone/APAP 7.5-325MG [[place] 1 - 2 each PO Q6HR PRN #56 tab 03/15/19 Rx 7.5-325] Allergies Allergy/AdvReac Type Severity Reaction Status Date / Time Beta-Blockers Allergy Unknown Verified 03/08/19 11:07 (Beta-Adrenergic Bloc Physical Exam Vitals: Vital Signs Temp Pulse Pulse Pulse Resp BP Pulse Ox 03/15/19 07:00 97.5 F L 93 15 127/71 96 03/14/19 22:40 96 147/91 03/14/19 22:25 98 175/91 03/14/19 22:10 96 166/83 03/14/19 21:55 96 165/90 03/14/19 21:40 94 155/82 03/14/19 21:25 95 177/94 03/14/19 21:10 96 163/93 03/14/19 20:55 96 162/81 03/14/19 20:40 98.2 F 98 16 167/84 94 L 03/14/19 20:17 106 H 18 172/79 94 L 03/14/19 20:02 106 H 18 168/77 95 03/14/19 19:47 90 18 138/66 99 03/14/19 19:32 86 16 168/74 98 03/14/19 19:17 84 16 151/68 98 03/14/19 19:02 92 16 151/60 98 03/14/19 18:48 97.8 F 80 16 156/72 98 03/14/19 14:56 97.2 F L 69 16 136/62 95 Intake and Output 03/14/19 03/15/19 03/15/19 22:59 06:59 14:59 Intake Total 1771 250 Output Total 230 65 Balance 1541 -65 250 Intake: IV 1771 Oral 250 Output: Drainage 65 Right Shoulder 65 Estimated Blood Loss 230 Other: Voiding Method Toilet Weight 87 kg Results CBC & Chem 7: 03/15/19 07:04 Labs: Abnormal Lab Results - Last 24 Hours (Table) 03/14/19 03/15/1920 Range/Units 20:20 06:51 07:04 RBC 3.49 L (3.80-5.40) m/uL MCV 101.3 H (80.0-100.0) fL Lymphocytes # 0.7 L (1.0-4.8) k/uL POC Glucose (mg/dL) 175 H 188 H (75-99) mg/dL 03/15/19 Range/Units 11:22 RBC (3.80-5.40) m/uL MCV (80.0-100.0) fL Lymphocytes # (1.0-4.8) k/uL POC Glucose (mg/dL) 153 H (75-99) mg/dL
--- NOTE | 2019-03-15 14:06 | P.DS ---
Providers Date of admission: 03/14/19 13:45 Expected date of discharge: 03/15/19 Attending physician: Alen Wesley Consults: 03/14/19 16:21 Consult Physician Routine Consulting Provider: Trevor Fischer Consult Reason/Comments: post op medical management Do you want consulting provider notified?: Yes Primary care physician: Kirby Davidson - Discharge Diagnosis(es) (1) Status post total replacement of right shoulder Patient was admitted to the OR on 03/14/2019 to undergo a right total shoulder arthroplasty. She had failed conservative measures as an outpatient desired to proceed with elective surgery after given informed consent. She underwent the above procedure which she tolerated well without complication. Postoperative hospital remained without complication. On day of discharge she is afebrile, vital signs stable, labs within acceptable ranges, tolerating by mouth meds and diet, voiding without difficulty, positive flatus, denies abdominal pain or calf pain, pain is controlled on oral pain medication and has no new complaints. Wound is benign, neurovascular status is intact, calf is soft and nontender, abdomen soft and nontender. Review of systems is negative for numbness, tingling, fever, chills, chest pain, shortness of breath, nausea, vomiting, dizziness, headaches, slurred speech or other Current Visit: Yes Status: Acute Priority: Medium Procedures: Right TSA Patient Condition at Discharge: Good Plan - Discharge Summary Discharge Rx Participant: Yes New Discharge Prescriptions: New Docusate [Colace] 100 mg PO BID #60 capsule HYDROcodone/APAP 7.5-325MG [[place] 7.5-325] 1 - 2 each PO Q6HR PRN #56 tab PRN Reason: Pain No Action Aspirin EC [Ecotrin] 81 mg PO DAILY metFORMIN HCL [Glucophage] 500 mg PO BID Multivitamins, Thera [Theragran] 1 each PO DAILY@1200 Latanoprost [Xalatan 0.005%] 1 drop BOTH EYES HS Cholecalciferol [Vitamin D3] 2,000 unit PO DAILY@1200 Atorvastatin [Lipitor] 20 mg PO HS Losartan [Cozaar] 50 mg PO QAM [place]-3 Fatty Acids [[place]-3] 2 tab PO DAILY Insulin Glargine,Hum.rec.anlog [Toujeo Max Solostar] 14 unit SQ HS Ubidecarenone [Co Q-10] 1 tab PO DAILY Calcium Carbonate [Calcium] 600 mg PO DAILY Ibuprofen [Motrin] 800 mg PO Q6H PRN PRN Reason: Pain Menthol [Biofreeze] 1 applic TOPICAL DIRECTED PRN PRN Reason: Pain Discharge Medication List Aspirin EC [Ecotrin] 81 mg PO DAILY 11/25/14 [History] Atorvastatin [Lipitor] 20 mg PO HS 11/25/14 [History] Cholecalciferol [Vitamin D3] 2,000 unit PO DAILY@1200 11/25/14 [History] Latanoprost [Xalatan 0.005%] 1 drop BOTH EYES HS 11/25/14 [History] Losartan [Cozaar] 50 mg PO QAM 11/25/14 [History] Multivitamins, Thera [Theragran] 1 each PO DAILY@1200 11/25/14 [History] [place]-3 Fatty Acids [[place]-3] 2 tab PO DAILY 11/25/14 [History] metFORMIN HCL [Glucophage] 500 mg PO BID 11/25/14 [History] Insulin Glargine,Hum.rec.anlog [Toujeo Max Solostar] 14 unit SQ HS 07/12/17 [History] Calcium Carbonate [Calcium] 600 mg PO DAILY 08/08/18 [History] Ubidecarenone [Co Q-10] 1 tab PO DAILY 08/08/18 [History] Ibuprofen [Motrin] 800 mg PO Q6H PRN 03/08/19 [History] Menthol [Biofreeze] 1 applic TOPICAL DIRECTED PRN 03/08/19 [History] Docusate [Colace] 100 mg PO BID #60 capsule 03/15/19 [Rx] HYDROcodone/APAP 7.5-325MG [[place] 7.5-325] 1 - 2 each PO Q6HR PRN #56 tab 03/15/19 [Rx] Follow up Appointment(s)/Referral(s): Kirby Davidson MD [Primary Care Provider] - 03/22/19 8:20 am Alen Wesley MD [STAFF PHYSICIAN] - 03/26/19 8:25 am Patient Instructions/Handouts: Joint Replacement Surgery (DC) Activity/Diet/Wound Care/Special Instructions: Keep wound clean and dry, maintain sling Take meds as directed Follow-up with Dr. Wesley in office Non weight bearing upper extremity May shower in 3 days if no bleeding Discharge Disposition: HOME WITH HOME HEALTH SERVICES
== END 2019-03-15 14:07 | disposition home health service (06) | DRG 483 ==
LOC: 2ORMAIN 13:45 → 4SSUR 20:01
PROVIDERS: ADMIT Orthopaedic Surgery Sports Medicine; ATTEND Orthopaedic Surgery Sports Medicine
PROC: 0RRJ00Z Replacement of Right Shoulder Joint with Reverse Ball and Socket Synthetic Substitute, Open Approach (ICD-10-PCS; principal; 2019-03-14 15:50)
DX: M19.011 Primary osteoarthritis, right shoulder (principal); E78.5 Hyperlipidemia, unspecified; E11.9 Type 2 diabetes mellitus without complications; G25.0 Essential tremor; I34.1 Nonrheumatic mitral (valve) prolapse; G47.33 Obstructive sleep apnea (adult) (pediatric); Z79.82 Long term (current) use of aspirin; Z79.84 Long term (current) use of oral hypoglycemic drugs; Z79.899 Other long term (current) drug therapy; Z80.0 Family history of malignant neoplasm of digestive organs; Z98.51 Tubal ligation status; Z90.89 Acquired absence of other organs; Z98.890 Other specified postprocedural states; Z99.89 Dependence on other enabling machines and devices; Z88.8 Allergy status to other drugs, medicaments and biological substances
CPT/HCPCS: 64415; 76942; 85025; 88300

== ENCOUNTER 2020-01-02 08:16 | Day surgery (SDC) | payer MEDICARE, OTHER ==
[2020-01-01 10:48] VITALS: BMI 31.6
[~2020-01-02 08:16] MED LIST changes: -ACETAMINOPHEN TAB 500 MG TAB PO ONE; -DEXAMETHASONE SOD PHOSPHATE 10 MG/ML 1 ML VIAL IV ONE; -GABAPENTIN 300 MG CAP PO ONE; +LACTATED RINGERS 1,000 ML IV SCH; -LIDOCAINE 1% 20 ML VIAL (10MG/ML) FOR IV START INTRADERMA PRN; -MIDAZOLAM 2 MG/2 ML VIAL IV PRN; -ONDANSETRON 4 MG/2 ML VIAL IVP ONE; -TRANEXAMIC ACID 1,000 MG in SODIUM CHLORIDE 0.9% 100 ML IVPB ONE; -fentaNYL (PF) 50 MCG/ML 2 ML AMP IVP PRN
[2020-01-02 09:07] VITALS: RESP 16
[2020-01-02] MEDS ORDERED: LIDOCAINE 1% (10MG/ML) FOR IV START INTRADERMA ONE (09:08)
[2020-01-02 09:10] LABS: Glucose,Whole Blood 120 mg/dL (75-99)
[2020-01-02] MEDS ORDERED: LIDOCAINE 1% INJ 10MG/ML (20 ML MDV) ONE (09:58)
[2020-01-02] MEDS ORDERED: PROPOFOL 10 MG/ML 20 ML VIAL IV ONE (09:58)
--- NOTE | 2020-01-02 10:13 | P.PCN ---
Date of Procedure: 01/02/20 Procedure(s) Performed: BRIEF HISTORY: Patient is a 74-year-old, pleasant female scheduled for a upper endoscopy as a part of evaluation of epigastric pain, atypical chest pain and passive regurgitation with significant amount of food or mucus for the last several months duration. She was started on Prilosec 20 mg daily about 2 months ago and is feeling much better. She is scheduled for an upper endoscopy to evaluate further. PROCEDURE PERFORMED: Esophagogastroduodenoscopy with biopsy. PREOPERATIVE DIAGNOSIS: Atypical chest pain/epigastric pain and passive regurgitation of several months duration. IV sedation per anesthesia. PROCEDURE: After informed consent was obtained, the patient was brought into the endoscopy unit. IV sedation was administered by Anesthesia under continuous monitoring. Initially the Olympus GIF-140 video endoscope was inserted into the mouth. Esophagus intubated without any difficulty. It was gradually advanced into the distal esophagus. The esophagus appeared dilated with large amount of retained thick food noted along with mucus. The food was thoroughly suctioned out and upon careful examination the esophagus was very dilated and somewhat tortuous and the lower esophageal sphincter was very tight. With gentle pressure I was able to advance the scope into the stomach. The scope was advanced into the antrum of the stomach and duodenum and carefully examined. The bulb and the second part of the duodenum appeared normal. The scope at this time was withdrawn to the stomach, adequately insufflated with air, and upon careful examination, mucosa of the antrum, body, cardia and the fundus appeared normal. The scope was then withdrawn into the esophagus. The GE junction was located at 41 cm from the incisors. The esophagus appeared dilated and somewhat tortuous with retained food. No obvious ulceration identified. However the mucosa in the distal esophagus appeared slightly erythematous with some exudates. Biopsies were done from the distal esophagus. There were no erosions or ulcerations seen and the patient tolerated the procedure well. IMPRESSION: 1. Dilated tortuous esophagus with retained food and a tight lower esophageal sphincter suspicious for esophageal achalasia. 2. Mild distal esophagitis. RECOMMENDATIONS: The findings of this examination were discussed with the patient as well as her family. She was advised to follow with the biopsy results. She will be scheduled for an esophageal manometry to confirm the diagnosis of esophageal achalasia and she'll follow up in office in 3-4 weeks..
[2020-01-02 10:28] VITALS: BP 127/65; PULSE 72
== END 2020-01-02 11:05 | disposition home or self-care (01) ==
LOC: ORWHC2ENDO 08:16
PROVIDERS: ATTEND Internal Medicine Gastroenterology
DX: K22.8 Other specified diseases of esophagus (principal); K21.00 Gastro-esophageal reflux disease with esophagitis, without bleeding; E11.9 Type 2 diabetes mellitus without complications; I10 Essential (primary) hypertension; E78.5 Hyperlipidemia, unspecified; G47.33 Obstructive sleep apnea (adult) (pediatric); Z88.8 Allergy status to other drugs, medicaments and biological substances; Z79.899 Other long term (current) drug therapy; Z79.82 Long term (current) use of aspirin; Z79.4 Long term (current) use of insulin; Z98.890 Other specified postprocedural states; Z98.51 Tubal ligation status; Z91.89 Other specified personal risk factors, not elsewhere classified
CPT/HCPCS: 88305; 43239; J2001; J2704

== ENCOUNTER → 2020-01-07 | Day surgery (SDC) | payer MEDICARE, OTHER ==
[2020-01-07 07:29] VITALS: BP 129/79; PULSE 79; RESP 20; TEMP 96.9
[2020-01-07 07:42] LABS: Glucose,Whole Blood 129 mg/dL (75-99)
--- NOTE | 2020-01-07 12:20 | PCN ---
PROCEDURE NOTE DATE OF DICTATION: 01/07/2020 REQUESTING PHYSICIAN: Dr. Elli Davidson HISTORY OF PRESENT ILLNESS: The patient is a 74-year-old pleasant white female present scheduled for esophageal manometry as a part of evaluation of progressive dysphagia to solids and liquids for the last few months duration. She recently underwent an upper endoscopy last week that showed a dilated esophagus with retained food and a very tight lower esophageal sphincter suspicious for esophageal achalasia. She is since scheduled for esophageal manometry to evaluate this further. PROCEDURE PERFORMED: Esophageal manometry. PREOPERATIVE DIAGNOSIS: Progressive dysphagia to solids and liquids for the last several months duration. PROCEDURE DESCRIPTION: After informed consent was obtained, the patient was brought into the endoscopy unit. The procedure was performed by Endoscopy nurse, Liane. Patient was placed in a supine position. The esophageal manometry catheter was passed through the external nostril and was gently advanced into the esophagus and stomach. Study was performed using viscous and liquid swallows. The study was interpreted using [place] classification. Following are the results: 1. Lower esophageal sphincter data: Mean IRP 25 mmHg, residual pressure 5 mmHg. 2. Lower esophageal sphincter body; DCI 427 mmHg .S. cm. 3. Peristaltic contractions 0%. 4. Complete liquid transit was 70%. 5. Complete viscous transit was 20%. 6. The wave pattern shows isometric pressurization consistent with type 2 esophageal achalasia. 7. The above esophageal manometry study shows slightly increased integral residual pressures of the lower esophageal sphincter and a peristalsis in the esophageal body with isometric contractions and sanders-pressurization all consistent with type 2 esophageal achalasia. RECOMMENDATION: Patient will be seen in the office in 2 weeks and we will discuss endoscopic surgery. We will discuss further options regarding treatment. MMODL / IJN: [id number] /
== END ==
LOC: ORWHC2ENDO 07:14
PROVIDERS: ATTEND Internal Medicine Gastroenterology
DX: R13.10 Dysphagia, unspecified (principal); R19.2 Visible peristalsis
CPT/HCPCS: 91010

== ENCOUNTER → 2020-02-28 | Outpatient (CLI) | payer MEDICARE, OTHER ==
--- NOTE | 2020-03-02 21:11 | CT ---
EXAMINATION TYPE: CT chest w con DATE OF EXAM: 03/01/2020 COMPARISON: None HISTORY: 74-year-old female R91.8, other nonspecific abnormal findings of the lung. TECHNIQUE: Contiguous axial scanning of the chest after the administration of 100 mL of Isovue 300. Coronal/sagittal reconstructions performed. CT DLP: 563.7 mGycm. Automatic exposure control utilized for a dose reduction. FINDINGS: Heart normal size without pericardial effusion. Aorta normal caliber with conventional vessel branching anatomy. Mild atelectatic narrowing at the or igin of the left subclavian artery. Calcified left AP window lymph nodes compatible with prior granulomatous disease. No thoracic lymphad enopathy by CT size criteria. There is a distended fluid column of the thoracic esophagus with tapering at the GE junction. Mild diffuse bronchial wall thickening. 3 mm posterior right upper lung pulmonary nodule, axial image 21. 4 mm right mid lung pulmonary nodule, axial image 24. 3 mm left midlung pulmonary nodule, axial image 22. No consolidation or pleural effusion. Prominent bibasilar strandy atelectasis or scarring. Visualized upper abdomen shows calcified granuloma within the right liver lobe. There are faceted gal lstones measuring up to 1.8 cm there are no abnormal gallbladder distention. Cortical cysts within the upper pole of the left kidney measuring up to 2.4 cm. Bones: [facility] within the mid to lower thoracic spine. Moderate degenerative disc disease in the visuali zed upper lumbar spine. Reverse right shoulder arthroplasty. IMPRESSION: 1. Marked diffuse fluid distention of the thoracic esophagus. Findings may reflect severe gastroesoph ageal reflux disease, stricture at the GE junction, achalasia, or severe dysmotility. Recommend GI re ferral for further evaluation. 2. Mild bronchial wall thickening could reflect bronchitis or chronic asthma. Prominent bibasilar str cyrus atelectasis or scarring. 3. A few pulmonary nodules measuring up to 4 mm. 6-12 month follow-up CT recommended to reassess. 4. Prior granulomatous disease, cholelithiasis.
== END | disposition home or self-care (01) ==
LOC: RADCTMAIN 08:32
PROVIDERS: ATTEND Family Medicine
DX: R91.8 Other nonspecific abnormal finding of lung field (principal); K22.8 Other specified diseases of esophagus; J98.09 Other diseases of bronchus, not elsewhere classified
CPT/HCPCS: 82565; 84520; 71260; 36415; Q9967

== ENCOUNTER 2021-01-09 06:33 | Day surgery (SDC) | payer MEDICARE, OTHER ==
[2021-01-06 10:24] VITALS: BMI 29.2
[~2021-01-09 06:33] MED LIST changes: +LIDOCAINE 1% (10MG/ML) FOR IV START INTRADERMA PRN
[2021-01-09 07:00] VITALS: RESP 16; TEMP 96.7
[2021-01-09 07:16] LABS: Glucose,Whole Blood 103 mg/dL (75-99)
[2021-01-09] MEDS ORDERED: PROPOFOL 10 MG/ML 20 ML VIAL IV ONE (07:32)
[2021-01-09] MEDS ORDERED: LIDOCAINE 1% INJ 10MG/ML (20 ML MDV) ONE (07:32)
--- NOTE | 2021-01-09 07:56 | P.PCN ---
Date of Procedure: 01/09/21 Preoperative Diagnosis: Screening Postoperative Diagnosis: Overall, normal colon Internal hemorrhoids Procedure(s) Performed: Colonoscopy Anesthesia: MAC Surgeon: Satinder Glynn Pathology: none sent Condition: stable Disposition: same day Indications for Procedure: 75-year-old female presents today for screening colonoscopy. Last colonoscopy was 5 years ago. Denies any significant blood in her stool. Operative Findings: Overall, normal colon Internal hemorrhoids Description of Procedure: The patient was brought into the endoscopy suite and placed in left lateral decubitus position and adequate sedation was achieved using conscious sedation. A digital rectal exam was performed and mild internal hemorrhoids were palpated. An endoscope was then placed in the rectum and advanced to the cecum as identified by landmarks including the appendiceal orifice and the ileocecal valve. The prep was good. The colonoscope was then slowly withdrawn, examining for any mucosal abnormalities. The cecum, ascending, transverse, descending and sigmoid colon were visualized adequately. There were no obvious neoplastic lesions noted throughout the colon. There were no obvious polyps noted throughout the colon. There is no evidence of diverticulosis. Retroflexion was performed in the rectum and internal hemorrhoids were visible. Excess air was removed, the colonoscope withdrawn and the procedure terminated. The patient was then transferred to the recovery unit in stable condition. Repeat colonoscopy should be performed 7 years.
[2021-01-09 08:23] LABS: Glucose,Whole Blood 120 mg/dL (75-99)
[2021-01-09 08:46] VITALS: BP 105/53; PULSE 72
== END 2021-01-09 08:53 | disposition home or self-care (01) ==
LOC: ORWHC2ENDO 06:33
PROVIDERS: ATTEND Surgery
DX: Z12.11 Encounter for screening for malignant neoplasm of colon (principal); K64.8 Other hemorrhoids
CPT/HCPCS: J2001; J2704; G0121

== ENCOUNTER 2021-08-04 15:59 | Emergency (ER) | payer MEDICARE, OTHER ==
[2021-08-04 16:09] VITALS: BP 132/67; PULSE 77; RESP 20; TEMP 98.3
--- NOTE | 2021-08-04 16:29 | XR ---
EXAMINATION TYPE: XR wrist complete RT DATE OF EXAM: 08/04/2021 CLINICAL HISTORY: Pain after recent fall. History of remote fracture. TECHNIQUE: Frontal, lateral and oblique images of the right wrist are obtained. 4 view scaphoid vie w is performed. COMPARISON: None FINDINGS: Osseous structures are demineralized. There is no acute fracture/dislocation evident in th e right wrist. Calcification of the triangular fibrocartilage is present. Mild to moderate narrowing base of first metacarpal and triscaphe joint. The overlying soft tissue appears unremarkable. IMPRESSION: There is no acute fracture or dislocation in the right wrist.
[2021-08-04] MEDS ORDERED: ACETAMINOPHEN TAB 500 MG TAB PO STA (17:03)
--- NOTE | 2021-08-04 17:09 | ED ---
General Adult HPI - General Chief complaint: Extremity Injury, Upper Stated complaint: R arm injury Time Seen by Provider: 08/04/21 17:00 Source: patient, RN notes reviewed, old records reviewed Mode of arrival: ambulatory Limitations: no limitations - History of Present Illness Initial comments: This is a pleasant 76-year-old female presents ambulatory to the emergency room with complaints of right wrist pain. Patient states that she missed a step in the basement falling down 2 steps and put her right arm out to stop her fall. She is complaining of right wrist pain. She denies hitting her head no loss of consciousness no other injuries. -: hour(s) (8) Location: right, upper extremity (wrist) Severity scale (1-10): 4 Quality: aching, constant Consistency: constant Improves with: immobilization Worsens with: movement Treatments Prior to Arrival: other (sling) - Related Data Home Medications Medication Instructions Recorded Confirmed Aspirin EC [Ecotrin Low Dose] 81 mg PO DAILY 11/25/14 01/09/21 Atorvastatin [Lipitor] 20 mg PO HS 11/25/14 01/09/21 Cholecalciferol [Vitamin D3 (25 2,000 unit PO DAILY@1200 11/25/14 01/09/21 Mcg = 1000 Iu)] Losartan [Cozaar] 50 mg PO QAM 11/25/14 01/09/21 Multivitamins, Thera [Multivitamin 1 each PO DAILY@1200 11/25/14 01/09/21 (formulary)] [place]-3 Fatty Acids [[place]-3] 1 tab PO BID 11/25/14 01/09/21 Insulin Glargine,Hum.rec.anlog 14 unit SQ HS 07/12/17 01/09/21 [Toujeo Max Solostar] Calcium Carbonate [Calcium] 600 mg PO DAILY 08/08/18 01/09/21 Ubidecarenone [Co Q-10] 1 tab PO DAILY 08/08/18 01/09/21 Albuterol Inhaler [Ventolin Hfa 1 puff INHALATION DAILY PRN 01/01/20 01/09/21 Inhaler] L.acidoph,Paracasei, B.lactis 1 each PO BID 01/01/20 01/09/21 [Probiotic] Dulaglutide [Trulicity] 1.75 mg SQ Q7D 01/06/21 01/09/21 Travoprost [Travatan Z 0.004%] 1 drop BOTH EYES DAILY 01/06/21 01/09/21 Allergies Allergy/AdvReac Type Severity Reaction Status Date / Time Beta-Blockers Allergy Unknown Verified 08/04/21 16:09 (Beta-Adrenergic Bloc Review of Systems ROS Statement: Those systems with pertinent positive or pertinent negative responses have been documented in the HPI. ROS Other: All systems not noted in ROS Statement are negative. Past Medical History Past Medical History: Diabetes Mellitus, Hyperlipidemia Additional Past Medical History / Comment(s): chronic proteinuria essential tremor, treated on right side, still has on left side, wears a dental device for snoring, 'slight leak' for the mitral valve prolapse, trigger finger Dupuytren's disease, takes Losartan for her kidneys. Hx. of Achalasia. History of Any Multi-Drug Resistant Organisms: None Reported Past Surgical History: Back Surgery, Joint Replacement, Orthopedic Surgery, Tubal Ligation Additional Past Surgical History / Comment(s): EGD ON 01/02/20. 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 Past Anesthesia/Blood Transfusion Reactions: No Reported Reaction Past Psychological History: No Psychological Hx Reported Smoking Status: Never smoker Past Alcohol Use History: None Reported Past Drug Use History: None Reported - Past Family History Mother Family Medical History: Cancer Father Additional Family Medical History / Comment(s): hx of alcohol abuse. General Exam Limitations: no limitations General appearance: alert, in no apparent distress Head exam: Present: atraumatic, normal inspection Eye exam: Present: normal appearance. Absent: scleral icterus, conjunctival injection Neck exam: Present: full ROM. Absent: tenderness, meningismus Respiratory exam: Present: normal lung sounds bilaterally. Absent: respiratory distress, accessory muscle use Cardiovascular Exam: Present: regular rate Right Shoulder Exam: Present: full ROM. Absent: tenderness Upper Arm exam: Present: normal inspection, full ROM. Absent: tenderness Elbow exam: Present: normal inspection, full ROM. Absent: tenderness Forearm Wrist exam: Present: full ROM, tenderness, other (Pain along the right radial head). Absent: swelling, laceration, ecchymosis, deformity, crepitus, dislocation, erythema, tenderness over anatomical snuff box, pain with axial thumb loading Neuro motor exam: Present: wrist extension intact, thumb opposition intact, thumb IP flexion intact, thumb adduction intact, fingers 2-5 abduction intact Neurosensory exam: Present: radial nerve intact, ulnar nerve intact, median nerve intact Vascular: Present: normal capillary refill, radial pulse. Absent: vascular compromise Neurological exam: Present: alert, oriented X3 Psychiatric exam: Present: normal affect, normal mood Skin exam: Present: warm, dry, intact. Absent: cyanosis, diaphoretic, erythema, petechiae, pallor, mottled Course Vital Signs 08/04/21 16:06 Temperature 98.3 F Pulse Rate 77 Respiratory 20 Rate Blood Pressure 132/67 O2 Sat by Pulse 96 Oximetry Medical Decision Making - Medical Decision Making X-ray of the right wrist shows no acute fracture or dislocation. There is calcification of the triangular fibrocartilage. She is neurovascularly intact with good range of motion, minimal swelling. Patient did arrive wearing a sling which she brought from home states that it is helping with her discomfort. She was given an Marco A wrap and directed to follow up with her primary care doctor or orthopedics this week. Tylenol as needed for pain, rest, ice and elevate. Patient is agreeable to this plan of care. Case discussed with Dr. Lester Disposition Clinical Impression: Right wrist sprain Disposition: HOME SELF-CARE Condition: Good Instructions (If sedation given, give patient instructions): Wrist Injury (ED) Additional Instructions: Rest, ice, elevate and take Tylenol for pain. Wear the Marco A wrap for support. Follow up with orthopedics or your primary care doctor if pain persists. Is patient prescribed a controlled substance at d/c from ED?: No Referrals: Freddie Leyva MD [Primary Care Provider] - 1-2 days Maldonado Fermin DO [Doctor of Osteopathic Medicine] - 1-2 days Time of Disposition: 17:17
== END 2021-08-04 17:29 | disposition home or self-care (01) ==
LOC: EC 15:59
DX: S63.501A Unspecified sprain of right wrist, initial encounter (principal); E11.9 Type 2 diabetes mellitus without complications; E78.5 Hyperlipidemia, unspecified; Z79.4 Long term (current) use of insulin; Z79.82 Long term (current) use of aspirin; Z79.51 Long term (current) use of inhaled steroids; Z79.899 Other long term (current) drug therapy; W10.9XXA Fall (on) (from) unspecified stairs and steps, initial encounter
CPT/HCPCS: 99284

== ENCOUNTER → 2021-08-19 | Outpatient (CLI) | payer MEDICARE, OTHER ==
--- NOTE | 2021-08-19 16:19 | NM ---
EXAMINATION TYPE: NM parathyroid w/spect DATE OF EXAM: 08/19/2021 COMPARISON: CT chest 02/28/2020 HISTORY: Hyperparathyroidism TECHNIQUE: Following administration of 25.5 mCi Tc99m Sestamibi. Anterior projection images of the neck and ches t were obtained 10 minutes and 3 hours post injection. SPECT images of the neck and chest were obtai joaquin and reconstructed in three axes. FINDINGS: Thyroid tracer washout: Delayed images demonstrate near-complete tracer washout from the thyroid. Parathyroid uptake: None. Normal uptake: There is physiological tracer uptake in the salivary glands, and thyroid gland. IMPRESSION: Normal parathyroid imaging study. No evidence for mediastinal uptake to suggest mediastinal parathyro id adenoma
== END | disposition home or self-care (01) ==
LOC: RADNMMAIN 10:32
PROVIDERS: ATTEND Internal Medicine Nephrology
DX: E21.3 Hyperparathyroidism, unspecified (principal)
CPT/HCPCS: 78071; A9500

== ENCOUNTER → 2022-01-12 | Outpatient (CLI) | payer MEDICARE, OTHER ==
--- NOTE | 2022-01-13 06:20 | US ---
EXAMINATION TYPE: US kidneys/renal and bladder DATE OF EXAM: 01/12/2022 COMPARISON: NONE CLINICAL HISTORY: ckd stage 1 N18.1. Stage 1 CKD. Type 2 diabetes. EXAM MEASUREMENTS: Right Kidney: 10.7 x 5.8 x 4.6 cm Left Kidney: 10.4 x 5.8 x 5.7 cm Right Kidney: No hydronephrosis or masses seen Left Kidney: Nonsimple cyst seen medially: 1.5 x 1.1 x 1.0 cm. Hyperechoic focus seen medially: 0.4 x 0.5 x 0.6 cm. Bladder: Appears anechoic. Not fully distended. Limited evaluation. Bilateral Jets seen: No Left kidney has 5 mm hyperechoic focus upper pole level. Left kidney has septated thin-walled 1.5 cm cyst medially. Bladder not greatly distended. IMPRESSION: No hydronephrosis noted bilaterally.
== END | disposition home or self-care (01) ==
LOC: RADUSWWP 15:40
PROVIDERS: ATTEND Internal Medicine
DX: E11.22 Type 2 diabetes mellitus with diabetic chronic kidney disease (principal); N18.1 Chronic kidney disease, stage 1
CPT/HCPCS: 76770

== ENCOUNTER → 2022-03-31 | Outpatient (CLI) | payer MEDICARE, OTHER ==
[2022-03-31 13:22] LABS: African American GFR (CKD) >90 (>60 ml/min/1.73 sqM); Blood Urea Nitrogen 25 mg/dL (7-17); Non-African American GFR(CKD) 89 (>60 ml/min/1.73 sqM)
--- NOTE | 2022-03-31 15:54 | CT ---
EXAMINATION TYPE: CT abdomen wo/w con DATE OF EXAM: 03/31/2022 COMPARISON: Ultrasound 01/12/2022 INDICATION: Left kidney cyst. DLP: 2032.10 mGycm, Automated exposure control for dose reduction was used. CONTRAST: 70 mL of Isovue 300. Study performed with Oral Contrast TECHNIQUE: Axial images were obtained from above the diaphragm to the pubic rami in the axial plane a t 5 mm thick sections. Reconstructed images are reviewed on the computer in the coronal plane. FINDINGS: Limited CT sections are obtained the lung bases. The lung bases are clear. CT ABDOMEN: Liver: Normal Spleen: Normal Pancreas: Normal Adrenal glands: The adrenal glands are normal. Gallbladder: Gallstones Kidneys: No masses are evident. No hydronephrosis is present. There is an anterior mid-upper pole l eft renal cyst measuring 1.1 cm and 21 Hounsfield units. There is a 1.7 cm cyst measuring 11 Hounsfie ld units along the anterior medial aspect of the mid-upper pole left kidney. There is a 0.9 cm cortic al renal cyst measuring 31 Hounsfield units on the posterior left mid to lower pole. Kidney cysts are best visualized on the delayed images. The ultrasound described hyperechoic focus within the medial left kidney is not identified on the current CT. Aorta: Vascular calcification is within the aorta. Inferior vena cava: Normal. IMPRESSIONS: 1. Left renal cysts.
== END | disposition home or self-care (01) ==
LOC: RADCTMAIN 12:46
PROVIDERS: ATTEND Urology
DX: D41.02 Neoplasm of uncertain behavior of left kidney (principal); N28.1 Cyst of kidney, acquired
CPT/HCPCS: 82565; 84520; 74170; 36415; Q9967 ×2

== ENCOUNTER → 2022-05-24 | Outpatient (CLI) | payer MEDICARE, OTHER ==
[2022-05-24 11:33] LABS: INR 0.9 (<1.2); Partial Thromboplastin Time 25.3 sec (22.0-30.0); Prothrombin Time 10.1 sec (9.0-12.0)
[2022-05-24 14:38] LABS: HCT 38.4 % (37.2-46.3); HGB 12.7 g/dL (12.0-15.0); MCH 31.7 pg (27.0-32.0); MCHC 33.1 g/dL (32.0-37.0); MCV 95.8 fL (80.0-97.0); NRBC Per 100 WBC 0 /100 WBCS (0.0-0.0); Platelet Count 296 X 10*3/uL (140-440); RBC 4.01 X 10*6/uL (4.10-5.20); RDW 12.5 % (11.5-14.5)
[2022-05-24 14:55] LABS: African American GFR (CKD) 98.2 (60.0-200.0); Albumin 4.4 g/dL (3.8-4.9); Albumin/Globulin Ratio 1.91 (1.60-3.17); BUN/Creat Ratio 18.86 Ratio (12.00-20.00); Blood Urea Nitrogen 13.2 mg/dL (9.0-27.0); Calcium 9.5 mg/dL (8.7-10.3); Globulin 2.3 g/dL (1.6-3.3); Non-African American GFR(CKD) 84.8 (60.0-200.0); Potassium 4.6 mmol/L (3.5-5.5); Total Bilirubin 0.2 mg/dL (0.30-1.20); Total Protein 6.7 g/dL (6.2-8.2)
[2022-05-24 20:29] LABS: Appearance,Urine Clear (Clear); Bilirubin,Urine Negative (Negative); Blood,Urine Negative (Negative); Color,Urine Yellow (Yellow); Ketones,Urine Negative (Negative); Nitrite,Urine Negative (Negative); Specific Gravity,Urine 1.015 (1.001-1.030); Urobilinogen,Urine 0.2 (0.2,1.0)
[2022-05-24 21:11] LABS: Bacteria,Urine Trace /HPF (None Seen)
== END | disposition home or self-care (01) ==
LOC: LABPAT 10:20
PROVIDERS: ATTEND Orthopaedic Surgery
DX: Z01.818 Encounter for other preprocedural examination (principal)
CPT/HCPCS: 80053; 81001; 85027; 85610; 85730; 87070; 93005

== ENCOUNTER 2022-06-01 07:11 | Day surgery (SDC) | payer MEDICARE, OTHER ==
[~2022-06-01 07:11] MED LIST changes: +ACETAMINOPHEN TAB 500 MG TAB PO PRN; +DEXAMETHASONE SOD PHOSPHATE 4 MG/ML 1 ML VIAL IV ONE; +GABAPENTIN 300 MG CAP PO PRN; +HYDROmorphone 0.5 MG/0.5 ML SYRINGE IVP PRN; -LACTATED RINGERS 1,000 ML IV SCH; -LIDOCAINE 1% (10MG/ML) FOR IV START INTRADERMA PRN; +MELOXICAM 7.5 MG TAB PO PRN; +ONDANSETRON 4 MG/2 ML VIAL IVP ONE; +TRANEXAMIC ACID IN NACL,ISO-OS 1,000 MG in SALINE 1 100ML.BAG IVPB PRN
[2022-06-01] MEDS: LACTATED RINGERS 1,000 ML IV SCH ×2 (07:33→23:52)
[2022-06-01 08:13] LABS: Glucose,Whole Blood 103 mg/dL (70-110)
[2022-06-01] MEDS ORDERED: MIDAZOLAM 2 MG/2 ML VIAL IVP ONE (08:34)
[2022-06-01] MEDS ORDERED: MAGNESIUM HYDROXIDE 2,400 MG/10 ML CUP PO PRN (09:10)
[2022-06-01] MEDS ORDERED: HYDROmorphone 0.5 MG/0.5 ML SYRINGE IVP PRN ×2 (09:10)
[2022-06-01] MEDS ORDERED: NALOXONE 0.4 MG/ML 1 ML VIAL IV PRN (09:10)
[2022-06-01] MEDS ORDERED: ONDANSETRON 4 MG/2 ML VIAL IVP PRN (09:10)
[2022-06-01] MEDS ORDERED: MIDAZOLAM 2 MG/2 ML VIAL ONE (09:19)
[2022-06-01] MEDS ORDERED: DEXAMETHASONE SOD PHOSPHATE 4 MG/ML 1 ML VIAL ONE (09:19)
[2022-06-01] MEDS ORDERED: TRANEXAMIC ACID IN NACL,ISO-OS 1,000 MG/100 ML BAG ONE (09:19)
[2022-06-01] MEDS ORDERED: PROPOFOL 10 MG/ML 20 ML VIAL IV ONE (09:19)
[2022-06-01] MEDS ORDERED: ROPIVACAINE 5 MG/ML 30 ML VIAL ONE (09:19)
[2022-06-01] MEDS ORDERED: fentaNYL (PF) 50 MCG/ML 2 ML AMP ONE (09:19)
[2022-06-01] MEDS ORDERED: KETAMINE 10 MG/ML 20 ML VIAL ONE (09:19)
[2022-06-01] MEDS ORDERED: ROPIVACAINE 5 MG/ML 30 ML VIAL MISCELLANE ONE ×3 (09:58→10:28)
--- NOTE | 2022-06-01 10:33 | P.OP ---
Date of Procedure: 06/01/22 Preoperative Diagnosis: Severe osteoarthritis right hip Postoperative Diagnosis: Severe osteoarthritis right hip Procedure(s) Performed: Right total hip arthroplasty with a direct anterior approach Implants: [employer] Polarstem standard size 2 with a collar [employer] R3, 3 hole hemispherical acetabular shell, 52 mm [employer] Reflection 6.5 mm cancellus screw, 20 mm 2 [employer] R3, XLPE 20 acetabular liner [employer] Oxinium femoral head 36 m, +0 All components were press-fit. The articulation is Oxinium on polyethylene. Anesthesia: spinal Surgeon: Maldonado Fermin Contact Lens Technician #1: Zena Ann Estimated Blood Loss (ml): 120 Pathology: other (Femoral head) Condition: stable Disposition: PACU Indications for Procedure: After failure of conservative treatment we discussed the surgical and nonsurgical treatment options at length. Patient wishes to proceed with a total hip arthroplasty with a direct anterior approach. Complications specific to this procedure were discussed at length, including but not limited to infection, leg length discrepancy, dislocation, nerve injury, and fracture. Covid-19 was also discussed at length with the patient, and they are aware of the current policies and procedures. The patient was given the option of delaying surgery, but they elect to proceed knowing these risks. Patient is aware of all these complications and informed consent was obtained Operative Findings: The operative findings are consistent with severe osteoarthritis of the right hip Description of Procedure: The patient was seen and evaluated in the preoperative area and the consent was reviewed. The operative site was marked with a skin marker. The patient verified the procedure and operative site. A ALLAN block was placed by anesthesia in the preoperative area. The patient was then brought to the operating room and given preoperative antibiotics intravenously. 1 g of Tranexamic acid was also given intravenously. A spinal anesthetic was administered by the anesthesia department. The patient was then placed on the [place] table with the bony prominences well-padded. The hip area was then prepped with a ChloraPrep solution and draped in the usual sterile fashion. A universal timeout was then performed, which confirmed the patient's name, surgical site, ALLERGIES, and procedure being performed on the consent. Next the incision site was located at 1 cm distal and 4 cm lateral to the anterior superior iliac spine. The skin and subcutaneous tissues were sharply incised. Incision was carefully dissected down to the fascia overlying the tensor fascia steffi muscle. This fascia was then incised in line with the muscle fibers. Care was taken to stay laterally in order to avoid injuring the lateral femoral cutaneous nerve. Next, using blunt finger dissection, the tensor fascia steffi muscle was dissected off its investing fascia. The muscle was then carefully retracted laterally with a cobra retractor over the lateral neck of the femur. Next, the circumflex vessels were identified and cauterized using the Aquamantis device. The anterior hip capsule was then exposed. The capsule was then opened and an inverted T fashion. The retractors were then placed intracapsularly. The retractors were maintained intracapsular throughout the procedure. The proximal femur was then visualized. Fluoroscopic x-rays were then taken in order to evaluate the preoperative leg lengths. A small amount of traction was placed on the leg. The femoral neck was then osteotomized at the appropriate level above the lesser trochanter. A small wedge of bone was then removed from the remaining femoral head. Next, using a corkscrew the femoral head was removed from the acetabulum. On gross visual inspection, the femoral head had complete loss of articular cartilage and multiple periarticular osteophytes. The femoral head was then measured. Attention was then turned to the acetabulum. The acetabulum was exposed and any remaining labrum was excised. Sequential reaming of the acetabulum was performed using fluoroscopic guidance until there was a good bed of bleeding cancellus bone. When the appropriate size was reached, a trial was then placed. The position and fit of the trial was checked with fluoroscopy. The trial was then removed. Then, using fluoroscopic guidance, the final implant was impacted at 20 of anteversion and 40 of abduction, and fully seated in the acetabulum. 2 screws were then placed in the acetabulum. Again fluoroscopy was used to check position of the screws. Next, the liner was then impacted, with a 20 elevated liner located in the anterior superior quadrant. Component locking was confirmed. Attention was then directed to the femur. With the aid of the [place] table, the femur was externally rotated to approximately 130, extended, and adducted under the opposite leg. A side hook was then placed under the proximal femur, and the side hook elevator was used to elevate the proximal femur while releasing the capsule. Retractors were then placed. A capsular release was performed, as well as a release of the conjoined tendon, which afforded excellent visualization of the proximal femur. Next, a box osteotome was used to lateralize the proximal femur. A dog handler was then used to locate the femoral canal. Sequential broaching was then performed with appropriate size which afforded excellent fixation in the proximal femur. A trial was then placed with appropriate head and neck, and the hip was gently reduced with the aid of the [place] table. Fluoroscopy was then used to check position of the components, as well as to evaluate the leg lengths and offset. The leg lengths and offset were measured as closely as possible to ensure stability of the hip. The hip was then gently dislocated and the trials were then removed. Final implants were then impacted and the hip was again reduced. Final fluoroscopic x-rays confirmed that the components were in anatomic position. The leg lengths and offset were measured and were found to coincide with the trial measurements. The hip was also taken through range of motion, and found to be stable. The hip was then copiously irrigated with antibiotic solution with pulsatile lavage. The hip was then irrigated with Irrisept solution. The soft tissues were then injected with a ropivacaine solution. A second dose of 1 g of Tranexamic acid was also given intravenously. The fascia was then closed with 2-0 strata fix suture. The subcutaneous tissue was closed with 3-0 Vicryl. The subcuticular tissue was closed with 3-0 strata fix suture. The skin was then closed with Exofin skin glue. After the glue and dried, and Optifoam silver impregnated dressing was applied. The patient was then transferred to the recovery room in stable condition. The purchasing assistant MEHNAZ Montemayor was required due to the complexity of surgery, and the need for skilled facilities assistant for positioning, draping, exposure, retraction, and closure of the wound.
--- NOTE | 2022-06-01 10:44 | FL ---
EXAMINATION TYPE: FL guidance operating room, XR Hip Limited RT DATE OF EXAM: 06/01/2022 CLINICAL HISTORY: Right hip pain and osteoarthritis. TECHNIQUE: Fluoroscopy. Intraoperative limited views right hip. COMPARISON: None. FINDINGS: Fluoroscopic guidance was provided during right hip replacement procedure performed by Dr. Fermin. A total of 61 seconds of fluoroscopic time was utilized during the procedure and 3 spot i mages was acquired. Intraoperative images obtained show metallic hardware from total right hip arthroplasty satisfactory in position on frontal projection. IMPRESSION: As Above.
[2022-06-01] MEDS ORDERED: LACTATED RINGERS 1,000 ML IV ONE (10:49)
--- NOTE | 2022-06-01 11:26 | XR ---
EXAMINATION TYPE: XR Hip Limited RT DATE OF EXAM: 06/01/2022 COMPARISON: NONE HISTORY: Postop TECHNIQUE: One view submitted. FINDINGS: There is postsurgical change in near anatomic alignment. There is soft tissue edema and emphysema. IMPRESSION: 1. Postoperative change. Appears in near-anatomic alignment.
[2022-06-01 12:01] LABS: Glucose,Whole Blood 140 mg/dL (70-110)
[2022-06-01] MEDS: SODIUM CHLORIDE 0.9% 1,000 ML IV SCH ×2 (15:05→23:52)
[2022-06-01] MEDS: HYDROmorphone 0.5 MG/0.5 ML SYRINGE IVP PRN ×2 (15:27→22:16)
[2022-06-01 16:46] LABS: Glucose,Whole Blood 213 mg/dL (70-110)
[2022-06-01] MEDS: traMADol 50 MG TAB PO PRN ×2 (17:41→23:40)
[2022-06-01] MEDS ORDERED: DEXTROSE 50% SYRINGE 50 ML IVP PRN ×2 (18:35)
[2022-06-01 20:25] LABS: Glucose,Whole Blood 152 mg/dL (70-110)
[2022-06-01] MEDS: SENNOSIDES-DOCUSATE SODIUM 1 EACH TAB PO SCH (21:38)
[2022-06-01] MEDS: INSULIN ASPART (NovoLOG) 100 UNIT/ML VIAL SQ SCH (21:38)
[2022-06-01] MEDS: ATORVASTATIN 20 MG TAB PO SCH (21:38)
[2022-06-01] MEDS: ASPIRIN 81 MG PO SCH (21:38)
[2022-06-01] MEDS: PANTOPRAZOLE 40 MG TABLET PO SCH (21:38)
[2022-06-02 06:08] LABS: Glucose,Whole Blood 111 mg/dL (70-110)
[2022-06-02] MEDS: INSULIN ASPART (NovoLOG) 100 UNIT/ML VIAL SQ SCH ×4 (06:13→20:51)
[2022-06-02] MEDS: traMADol 50 MG TAB PO PRN ×2 (06:15→20:09)
--- NOTE | 2022-06-02 06:19 | P.ANPRN ---
Procedure Note - Anesthesia - Nerve Block Performed Right Herr Single Time Out Performed: Yes Date of Procedure: 06/01/22 Procedure Start Time: 08:33 Procedure Stop Time: 08:41 Location of Patient: PreOp Indication: Acute Post-Operative Pain, Requested by Surgeon Sedation Type: Sedate with meaningful contact maintained Preparation: Sterile Prep, Sterile Dressing Position: Supine Needle Types: Pajunk Needle Gauge: 21 Ultrasound used to visualize needle placement: Yes Ultrasound used to observe medication spread: Yes Blood Aspirated: No Pain Paresthesia on Injection Noted: No Resistance on Injection: Normal Image Stored and Saved: Yes Events: Uneventful and Well Tolerated (Ropivacaine 0.5% 20 mL plus dexamethasone 4 mg)
[2022-06-02] MEDS: ASPIRIN 81 MG PO SCH ×2 (08:09→20:09)
[2022-06-02 09:00] LABS: Basophils # (A) 0.01 X 10*3/uL (0.00-0.10); Basophils % (A) 0.2 %; Eosinophils # (A) 0.03 X 10*3/uL (0.04-0.35); Eosinophils % (A) 0.5 %; HCT 29.7 % (37.2-46.3); HGB 10.1 g/dL (12.0-15.0); Immature Grans, Automated 0.4 %; Lymphocytes # (A) 1.06 X 10*3/uL (0.90-5.00); MCH 32.3 pg (27.0-32.0); MCV 94.9 fL (80.0-97.0); Mean Platelet Volume 9.2 fL (9.5-12.2); Monocytes # (A) 0.62 X 10*3/uL (0.20-1.00); Monocytes % (A) 11.1 %; NRBC Per 100 WBC 0 /100 WBCS (0.0-0.0); Neutrophils # (A) 3.84 X 10*3/uL (1.80-7.70); Neutrophils % (A) 68.8 %; Platelet Count 231 X 10*3/uL (140-440); RBC 3.13 X 10*6/uL (4.10-5.20); RDW 12.1 % (11.5-14.5); WBC 5.58 X 10*3/uL (4.50-10.00)
--- NOTE | 2022-06-02 11:14 | P.PN ---
Subjective Progress Note Date: 06/02/22 Principal diagnosis: Primary osteoarthritis right hip. Status post total right hip arthroplasty with direct anterior approach. This is a pleasant 77-year-old female who is postop day #1 status post total right hip arthroplasty with direct anterior approach. She has been up with physical therapy today but feels a little bit weak and unsure with ambulation. She is requesting a more day in the hospital to work with physical therapy. She has no other new complaints or concerns today. Vital signs and labs are stable. Objective - Vital Signs Vital signs: Vital Signs Temp 98.1 F 06/02/22 07:34 Pulse 85 06/02/22 08:07 Resp 17 06/02/22 08:07 BP 111/66 06/02/22 07:34 Pulse Ox 96 06/02/22 07:34 FiO2 Intake & Output 06/01/22 06/02/22 06/02/22 18:59 06:59 18:59 Intake Total 2350 1780 Output Total 120 Balance 2230 1780 Weight 78.2 kg Intake: IV 2050 Intake, IV Titration 820 Amount Sodium Chloride 0.9% 1, 770 000 ml @ 70 mls/hr IV . [id number] [facility] Rx#:[id number] ceFAZolin 2 gm In Sodium 50 Chloride 0.9% 50 ml @ 100 mls/hr IVPB Q8HR [facility] Rx# :[id number] Oral 300 960 Output: Estimated Blood Loss 120 Other: Voiding Method Toilet Toilet # Voids 1 1 - Exam This is a pleasant 77-year-old female in no acute distress. She is alert and oriented 3. Exam of the right hip reveals that her dressing is clean, dry and intact. She has full foot and ankle motion without difficulty or pain. Neurovascular status to the lower extremity is intact. - Labs CBC & Chem 7: 06/02/22 06:06 Labs: Abnormal Lab Results - Last 24 Hours (Table) 06/01/22 06/01/22 06/01/22 Range/Units 11:59 16:45 19:03 RBC (4.10-5.20) X 10*6/uL Hgb (12.0-15.0) g/dL Hct (37.2-46.3) % MCH (27.0-32.0) pg MPV (9.5-12.2) fL Eosinophils # (0.04-0.35) X 10*3/uL POC Glucose (mg/dL) 140 H 213 H (70-110) mg/dL Hemoglobin A1c 6.4 H (0.0-6.0) % 06/01/22 06/02/22 06/02/22 Range/Units 20:24 06:06 06:06 RBC 3.13 L (4.10-5.20) X 10*6/uL Hgb 10.1 L (12.0-15.0) g/dL Hct 29.7 L (37.2-46.3) % MCH 32.3 H (27.0-32.0) pg MPV 9.2 L (9.5-12.2) fL Eosinophils # 0.03 L (0.04-0.35) X 10*3/uL POC Glucose (mg/dL) 152 H 111 H (70-110) mg/dL Hemoglobin A1c (0.0-6.0) % Assessment and Plan (1) Osteoarthritis of right hip Current Visit: Yes Status: Acute Code(s): M16.11 - UNILATERAL PRIMARY OSTEOARTHRITIS, RIGHT HIP SNOMED Code(s): 191017299283265 (2) S/P total right hip arthroplasty Current Visit: Yes Status: Acute Code(s): Z96.641 - PRESENCE OF RIGHT ARTIFICIAL HIP JOINT SNOMED Code(s): 262155617537 Plan: The clinical findings are discussed the patient. We will keep her in the hospital until tomorrow. She will continue to work physical therapy. Plan is discharge to home with home care tomorrow.
[2022-06-02 11:25] LABS: Glucose,Whole Blood 120 mg/dL (70-110)
--- NOTE | 2022-06-02 13:45 | P.CONS ---
History of Present Illness - Reason for Consult Consult date: 06/02/22 Medical management - History of Present Illness History of present illness; patient 77-year-old lady with past medical signi ficant for hyperlipidemia, diabetes mellitus, hypertension who presented for elective procedure with orthopedic's.Patient was being seen by orthopedic in outpatient settings. Patient had multiple discussions with orthopedic surgery and conservative measures failed, patient decided to proceed with right total hip arthroplasty REVIEW OF SYSTEMS: CONSTITUTIONAL: No fever, no malaise, no fatigue. HEENT: No recent visual problems or hearing problems. Denied any sore throat. CARDIOVASCULAR: No chest pain, orthopnea, PND, no palpitations, no syncope. PULMONARY: No shortness of breath, no cough, no hemoptysis. GASTROINTESTINAL: No diarrhea, no nausea, no vomiting, no abdominal pain. NEUROLOGICAL: No headaches, no weakness, no numbness. HEMATOLOGICAL: Denies any bleeding or petechiae. GENITOURINARY: Denies any burning micturition, frequency, or urgency. MUSCULOSKELETAL/RHEUMATOLOGICAL: Right hip pain ENDOCRINE: Denies any polyuria or polydipsia. The rest of the 14-point review of systems is negative. PHYSICAL EXAMINATION: GENERAL: The patient is alert and oriented x3, not in any acute distress. Well developed, well nourished. HEENT: Pupils are round and equally reacting to light. EOMI. No scleral icterus. No conjunctival pallor. Normocephalic, atraumatic. No pharyngeal erythema. No thyromegaly. CARDIOVASCULAR: S1 and S2 present. No murmurs, rubs, or gallops. PULMONARY: Chest is clear to auscultation, no wheezing or crackles. ABDOMEN: Soft, nontender, nondistended, normoactive bowel sounds. No palpable organomegaly. MUSCULOSKELETAL: Right hip surgical incision seen EXTREMITIES: No cyanosis, clubbing, or pedal edema. NEUROLOGICAL: Gross neurological examination did not reveal any focal deficits. SKIN: No rashes. Assessment and plan Osteoarthritis of right hip Status post right hip total arthroplasty Plan; Monitor vital signs monitor CBC monitor CMP Continue pain management per orthopedics Continue DVT prophylaxis per orthopedics PT and OT evaluation Past Medical History Past Medical History: Diabetes Mellitus, Eye Disorder, Hyperlipidemia, Osteoarthritis (OA), Sleep Apnea/CPAP/BIPAP Additional Past Medical History / Comment(s): chronic proteinuria, essential tremor, treated on right side, still has on left side, slight leak' for the mitral valve prolapse, trigger finger Dupuytren's disease, takes Losartan for her kidneys. Hx. of Achalasia-procedure done- takes omeprazole. skinned left knee. does not use cpap. raises HOB. . contractures both hands. glacoma. History of Any Multi-Drug Resistant Organisms: None Reported Past Surgical History: Back Surgery, Bladder Surgery, Joint Replacement, Orthopedic Surgery, Tubal Ligation Additional Past Surgical History / Comment(s): EGD ON 01/02/20. 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 rt shoulder replaced. 2 laminectomies Past Anesthesia/Blood Transfusion Reactions: No Reported Reaction Past Psychological History: No Psychological Hx Reported Smoking Status: Never smoker Past Alcohol Use History: Occasional Past Drug Use History: None Reported - Past Family History Mother Family Medical History: Cancer Additional Family Medical History / Comment(s): alcohol abuse. esophageal cancer. Father Additional Family Medical History / Comment(s): hx of alcohol abuse. Medications and Allergies Home Medications Medication Instructions Recorded Confirmed Type Aspirin EC [Ecotrin Low Dose] 81 mg PO DAILY 11/25/14 06/01/22 History Atorvastatin [Lipitor] 20 mg PO HS 11/25/14 06/01/22 History Cholecalciferol [Vitamin D3 (25 2,000 unit PO MOWEFR 11/25/14 06/01/22 History Mcg = 1000 Iu)] Losartan [Cozaar] 50 mg PO QAM 11/25/14 06/01/22 History Multivitamins, Thera [Multivitamin 1 each PO DAILY@1200 11/25/14 06/01/22 History (formulary)] Ubidecarenone [Co Q-10] 1 tab PO DAILY 08/08/18 06/01/22 History L.acidoph,Paracasei, B.lactis 1 each PO DAILY 01/01/20 06/01/22 History [Probiotic] Dulaglutide [Trulicity] 1.5 mg SQ TH 01/06/21 06/01/22 History Travoprost [Travatan Z 0.004%] 1 drop BOTH EYES DAILY 01/06/21 06/01/22 History Omeprazole 20 mg PO HS 05/27/22 06/01/22 History Unk Dha 4 tab PO DAILY 05/27/22 06/01/22 History Unk Tumeric/Cumin 4 tab PO DAILY 05/27/22 06/01/22 History calcitrioL [Calcitriol] 1.25 mcg PO WEEKLY 05/27/22 06/01/22 History traMADol HCL 50 mg PO Q6H PRN 05/27/22 06/01/22 History Aspirin [Adult Low Dose Aspirin EC] 81 mg PO BID 30 Days #60 tab 06/01/22 Rx Sennosides [Senokot] 2 tab PO DAILY PRN #60 tablet 06/01/22 Rx traMADol HCl [Ultram] 1 - 2 tab PO Q6H PRN #32 tab 06/01/22 Rx Allergies Allergy/AdvReac Type Severity Reaction Status Date / Time Beta-Blockers Allergy Swelling Verified 06/01/22 07:55 (Beta-Adrenergic Bloc Physical Exam Vitals: Vital Signs Temp Pulse Pulse Resp BP Pulse Ox 06/02/22 08:07 85 17 06/02/22 07:34 98.1 F 85 17 111/66 96 06/02/22 02:41 97.7 F 84 17 120/70 98 06/01/22 19:35 97.8 F 85 17 133/73 96 06/01/22 15:25 97.5 F L 79 18 145/78 96 06/01/22 15:09 88 16 158/76 98 06/01/22 13:51 71 16 155/71 98 Intake and Output 06/01/22 06/02/22 06/02/22 22:59 06:59 14:59 Intake Total 300 1780 Balance 300 1780 Intake: Intake, IV Titration 820 Amount Sodium Chloride 0.9% 1, 770 000 ml @ 70 mls/hr IV . [id number] [facility] Rx#:[id number] ceFAZolin 2 gm In Sodium 50 Chloride 0.9% 50 ml @ 100 mls/hr IVPB Q8HR [facility] Rx# :[id number] Oral 300 960 Other: Voiding Method Toilet Toilet # Voids 1 1 Results CBC & Chem 7: 06/02/22 06:06 Labs: Abnormal Lab Results - Last 24 Hours (Table) 06/01/22 06/01/22 06/01/22 Range/Units 16:45 19:03 20:24 RBC (4.10-5.20) X 10*6/uL Hgb (12.0-15.0) g/dL Hct (37.2-46.3) % MCH (27.0-32.0) pg MPV (9.5-12.2) fL Eosinophils # (0.04-0.35) X 10*3/uL POC Glucose (mg/dL) 213 H 152 H (70-110) mg/dL Hemoglobin A1c 6.4 H (0.0-6.0) % 06/02/22 06/02/22 06/02/22 Range/Units 06:06 06:06 11:24 RBC 3.13 L (4.10-5.20) X 10*6/uL Hgb 10.1 L (12.0-15.0) g/dL Hct 29.7 L (37.2-46.3) % MCH 32.3 H (27.0-32.0) pg MPV 9.2 L (9.5-12.2) fL Eosinophils # 0.03 L (0.04-0.35) X 10*3/uL POC Glucose (mg/dL) 111 H 120 H (70-110) mg/dL Hemoglobin A1c (0.0-6.0) %
[2022-06-02] MEDS: HYDROmorphone 0.5 MG/0.5 ML SYRINGE IVP PRN (14:41)
[2022-06-02 16:27] LABS: Glucose,Whole Blood 115 mg/dL (70-110)
[2022-06-02] MEDS: SODIUM CHLORIDE 0.9% 1,000 ML IV SCH (19:25)
[2022-06-02] MEDS: PANTOPRAZOLE 40 MG TABLET PO SCH (20:09)
[2022-06-02] MEDS: SENNOSIDES-DOCUSATE SODIUM 1 EACH TAB PO SCH (20:09)
[2022-06-02] MEDS: ATORVASTATIN 20 MG TAB PO SCH (20:09)
[2022-06-02 20:26] LABS: Glucose,Whole Blood 118 mg/dL (70-110)
[2022-06-03] MEDS: traMADol 50 MG TAB PO PRN ×3 (01:58→15:03)
[2022-06-03 02:10] VITALS: RESP 17
[2022-06-03] MEDS: SODIUM CHLORIDE 0.9% 1,000 ML IV SCH (04:26)
[2022-06-03 06:18] LABS: Glucose,Whole Blood 104 mg/dL (70-110)
[2022-06-03] MEDS: INSULIN ASPART (NovoLOG) 100 UNIT/ML VIAL SQ SCH ×2 (06:38→11:58)
[2022-06-03] MEDS: LACTATED RINGERS 1,000 ML IV SCH (06:39)
[2022-06-03] MEDS: ASPIRIN 81 MG PO SCH (07:12)
[2022-06-03 11:43] LABS: Glucose,Whole Blood 110 mg/dL (70-110)
[2022-06-03 13:52] VITALS: BP 114/67; PULSE 88; TEMP 98.7
--- NOTE | 2022-06-03 14:10 | P.DS ---
Providers Expected date of discharge: 06/03/22 Attending physician: Maldonado Fermin Consults: 06/01/22 09:10 Consult Physician Routine Consulting Provider: Janie Vick Consult Reason/Comments: medical management Do you want consulting provider notified?: Yes Primary care physician: Freddie Henriquez Kut - Discharge Diagnosis(es) (1) Osteoarthritis of right hip Current Visit: Yes Status: Acute (2) S/P total right hip arthroplasty Current Visit: Yes Status: Acute Hospital Course: This is a 77-year-old female with known history of degenerative arthritis of the right hip. The patient presented for evaluation as an outpatient. After discussion and consideration patient elects to proceed with total hip arthroplasty. The patient is seen preoperatively by Dr. Fermin and medically cleared for surgery by their primary care physician. Patient is admitted to [facility] on 06/01/2022 for total hip arthroplasty. The procedure is performed without complication or sequelae. The patient is doing well postoperatively. Labs and vital signs are stable on day of discharge. On day of discharge patient's hip incision is healing well. There is minimal erythema. There is no drainage noted at this time. There is minimal soft tissue swelling to the hip and thigh. Patient has full foot and ankle motion without difficulty or pain. Calf is soft and nontender to palpation. Neurovascular status to the right lower extremity is intact. Patient is discharged home in good condition. Please see med rec for accurate list of home medications. Plan - Discharge Summary Discharge Rx Participant: Yes New Discharge Prescriptions: New Sennosides [Senokot] 2 tab PO DAILY PRN #60 tablet PRN Reason: Constipation Aspirin [Adult Low Dose Aspirin EC] 81 mg PO BID 30 Days #60 tab traMADol HCl [Ultram] 1 - 2 tab PO Q6H PRN #32 tab PRN Reason: Pain Continue Aspirin EC [Ecotrin Low Dose] 81 mg PO DAILY Multivitamins, Thera [Multivitamin (formulary)] 1 each PO DAILY@1200 Cholecalciferol [Vitamin D3 (25 Mcg = 1000 Iu)] 2,000 unit PO MOWEFR Atorvastatin [Lipitor] 20 mg PO HS Losartan [Cozaar] 50 mg PO QAM Ubidecarenone [Co Q-10] 1 tab PO DAILY L.acidoph,Paracasei, B.lactis [Probiotic] 1 each PO DAILY Travoprost [Travatan Z 0.004%] 1 drop BOTH EYES DAILY traMADol HCL 50 mg PO Q6H PRN PRN Reason: Pain calcitrioL [Calcitriol] 1.25 mcg PO WEEKLY Unk Tumeric/Cumin 4 tab PO DAILY Dulaglutide [Trulicity] 1.5 mg SQ TH Unk Dha 4 tab PO DAILY Omeprazole 20 mg PO HS Discharge Medication List Aspirin EC [Ecotrin Low Dose] 81 mg PO DAILY 11/25/14 [History] Atorvastatin [Lipitor] 20 mg PO HS 11/25/14 [History] Cholecalciferol [Vitamin D3 (25 Mcg = 1000 Iu)] 2,000 unit PO MOWEFR 11/25/14 [History] Losartan [Cozaar] 50 mg PO QAM 11/25/14 [History] Multivitamins, Thera [Multivitamin (formulary)] 1 each PO DAILY@1200 11/25/14 [History] Ubidecarenone [Co Q-10] 1 tab PO DAILY 08/08/18 [History] L.acidoph,Paracasei, B.lactis [Probiotic] 1 each PO DAILY 01/01/20 [History] Dulaglutide [Trulicity] 1.5 mg SQ TH 01/06/21 [History] Travoprost [Travatan Z 0.004%] 1 drop BOTH EYES DAILY 01/06/21 [History] Omeprazole 20 mg PO HS 05/27/22 [History] Unk Dha 4 tab PO DAILY 05/27/22 [History] Unk Tumeric/Cumin 4 tab PO DAILY 05/27/22 [History] calcitrioL [Calcitriol] 1.25 mcg PO WEEKLY 05/27/22 [History] traMADol HCL 50 mg PO Q6H PRN 05/27/22 [History] Aspirin [Adult Low Dose Aspirin EC] 81 mg PO BID 30 Days #60 tab 06/01/22 [Rx] Sennosides [Senokot] 2 tab PO DAILY PRN #60 tablet 06/01/22 [Rx] traMADol HCl [Ultram] 1 - 2 tab PO Q6H PRN #32 tab 06/01/22 [Rx] Follow up Appointment(s)/Referral(s): Maldonado Fermin DO [Doctor of Osteopathic Medicine] - 2 Weeks [facility] Visiting Nurse, [NON-STAFF] - 1-2 Days ([facility] will call you to schedule your in home physical therapy visits. ) Activity/Diet/Wound Care/Special Instructions: Weightbearing as tolerated with walker. Leave dressing intact. Dressing may be removed by home care nurse or by patient in 7 days. Then change dressing twice daily until follow up. May shower with initial dressing intact and after removal. If dressing become saturated, please remove. Please take aspirin 81mg twice daily for 30 days to prevent blood clots. Recommend use of compression stockings daily until follow up to help prevent swelling and blood clots. May remove at night before sleeping. Please follow-up with [facility] in 2 weeks and call with any questions or concerns, . Discharge Disposition: HOME WITH HOME HEALTH SERVICES
--- NOTE | 2022-06-03 15:29 | P.PN ---
Subjective Progress Note Date: 06/03/22 - Reason for Consult Consult date: 06/02/22 Medical management - History of Present Illness History of present illness; patient 77-year-old lady with past medical significant for hyperlipidemia, diabetes mellitus, hypertension who presented for elective procedure with orthopedic's.Patient was being seen by orthopedic in outpatient settings. Patient had multiple discussions with orthopedic surgery and conservative measures failed, patient decided to proceed with right total hip arthroplasty 06/03/2022 Patient is seen and evaluated in follow-up this morning status post total right hip arthroplasty with orthopedics reports was able to work with physical therapy and did well today. Patient does have walker at the bedside and encouraged to continue using. Patient reports her pain is managed on current regimen and we'll continue per orthopedics. Patient currently takes a daily aspirin and wi ll be continued on twice daily per orthopedics for DVT prophylaxis. Patient is a diabetic and blood sugars have been well controlled on current regimen and encouraged patient to continue current regimen at home. Patient with incentive spirometer at the bedside encouraged the patient to continue using at least 10 times every hour while awake and take at home and continued use. Patient reports Homecare rehab is being arranged. Patient is currently afebrile with no reports of nausea or vomiting noted. Patient reports she is not passing much gas but did last night and has reported no bowel movement as of yet. Encourage stool softeners as needed with narcotic use. Patient is voiding with no difficulties and denies chest pain or shortness of breath. No reports of nausea or vomiting noted and patient tolerating diet. Patient is medically stable for discharge today. Review of systems: Constitutional: No reports of fatigue, fever, or chills Cardiovascular: No reports of chest pain or palpitations Respiratory: No reports of shortness of breath or cough GI: No reports of nausea, vomiting, or diarrhea : No reports of dysuria or retention Neurovascular: reports of generalized weakness All medications have been reviewed PHYSICAL EXAMINATION: GENERAL: The patient is alert and oriented x3, not in any acute distress. Well developed, well nourished. HEENT: Pupils are round and equally reacting to light. EOMI. No scleral icterus. No conjunctival pallor. Normocephalic, atraumatic. No pharyngeal erythema. No thyromegaly. CARDIOVASCULAR: S1 and S2 present. No murmurs, rubs, or gallops. PULMONARY: Chest is clear to auscultation, no wheezing or crackles. ABDOMEN: Soft, nontender, nondistended, normoactive bowel sounds. No palpable organomegaly. MUSCULOSKELETAL: Right hip surgical incision seen EXTREMITIES: No cyanosis, clubbing, or pedal edema. NEUROLOGICAL: Gross neurological examination did not reveal any focal deficits. SKIN: No rashes. Assessment: Osteoarthritis of right hip Status post right hip total arthroplasty, postop day 2 History of diabetes mellitus, type II Hyperlipidemia History of sleep apnea uses a CPAP GI prophylaxis DVT prophylaxis Full code Plan: Recommend continue with current medications and management per orthopedic services. Patient is status post right total hip arthroplasty and doing well. Patient was able to work with physical therapy and will be going home with home care Incentive spirometer at the bedside encouraged to continue using at least 10 times every hour while awake and breathing home as well. Patient is a diabetic and recommend Accu-Cheks before meals and at bedtime and continue sliding scale and may resume home oral medications once discharged Patient reports she is being discharged today and reports her pain is managed. DVT prophylaxis and pain management per orthopedics Encourage the patient to continue with follow-up in the outpatient setting with orthopedics as scheduled along with following up with her primary care provider Patient is medically stable for discharge today Thank you kindly for this consultation and we will continue to follow with orthopedics during hospitalization The impression and plan of care has been dictated by Kim Dan, Nurse Practitioner as directed. Dr. Dariela MD I have performed a history and examination and MDM of this patient, discussed th e same with the dictator, and agree with the dictator's assessment and plan as written ,documented as a scribe. Based on total visit time, I have performed more than 50% of the visit. Objective - Vital Signs Vital signs: Vital Signs Temp 98.5 F 06/03/22 07:53 Pulse 92 06/03/22 08:29 Resp 17 06/03/22 08:29 BP 120/66 06/03/22 07:53 Pulse Ox 98 06/03/22 09:02 FiO2 Intake & Output 06/02/22 06/03/22 06/03/22 18:59 06:59 18:59 Intake Total 118 Balance 118 Intake: Oral 118 Other: Voiding Method Toilet Toilet Toilet # Voids 3 2 - Labs CBC & Chem 7: 06/02/22 06:06 Labs: Abnormal Lab Results - Last 24 Hours (Table) 06/02/22 06/02/22 06/02/22 Range/Units 11:24 16:26 20:25 POC Glucose (mg/dL) 120 H 115 H 118 H (70-110) mg/dL
== END 2022-06-03 16:04 | disposition home health service (06) ==
LOC: OR 07:11 → 4SSUR 10:56 → OR 06-03 16:04
PROVIDERS: ATTEND Orthopaedic Surgery
DX: M16.11 Unilateral primary osteoarthritis, right hip (principal); E78.5 Hyperlipidemia, unspecified; E11.9 Type 2 diabetes mellitus without complications; N28.9 Disorder of kidney and ureter, unspecified; K21.9 Gastro-esophageal reflux disease without esophagitis; H40.9 Unspecified glaucoma; Z79.899 Other long term (current) drug therapy; Z96.611 Presence of right artificial shoulder joint; Z98.890 Other specified postprocedural states; Z88.8 Allergy status to other drugs, medicaments and biological substances; F10.20 Alcohol dependence, uncomplicated
CPT/HCPCS: 27130; 64447; 76942; 94760; 97116; 97161; 97165; 85025; 88300; 83036; 73501; C1776; J2250; J1100; J0690; J2405; J2795; J1170 ×2; 86850; 86900; 86901

== ENCOUNTER → 2023-02-11 | Outpatient (CLI) | payer MEDICARE, OTHER ==
[2023-02-11 08:44] LABS: African American GFR (CKD) 87 (>60 ml/min/1.73 sqM); Blood Urea Nitrogen 23 mg/dL (7-17); Non-African American GFR(CKD) 76 (>60 ml/min/1.73 sqM)
--- NOTE | 2023-02-11 13:53 | CT ---
EXAMINATION TYPE: CT abdomen wo/w con CT DLP: 1804.3 mGycm, Automated exposure control for dose reduction was used. 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 S agittal and coronal reformats were created on a separate workstation. Contrast used:100 mL of Isovue 300 with IV Contrast, (none if empty) Oral contrast used: with Oral Contrast (none if empty) FINDINGS: LOWER CHEST: Unremarkable lung bases. Somewhat patulous appearance of the distal esophagus, containin g some contrast. ABDOMEN LIVER: Couple calcified right lobe nodules consistent with granulomas. Otherwise unremarkable. Right hepatic lobe appears elongated, 18.6 cm, may represent Javier's lobe rather than hepatomegaly. GALLBLADDER AND BILE DUCTS: At least 2 moderate-sized peripherally calcified gallstones. Gallbladder is nondistended without inflammatory changes. No biliary dilatation identified. PANCREAS: Fatty infiltrated without acute abnormality. SPLEEN: Unremarkable. ADRENAL GLANDS: Mild thickening and nodularity of the adrenals, stable and may represent adenomatoid change versus hyperplasia.. KIDNEYS AND URETERS: No renal calculi identified. Kidneys enhance symmetrically. Right kidney is unr emarkable. Redemonstration of low-density nonenhancing nodules measuring 1.6 cm and 1.2 cm in the left upper betty e, 1.2 cm posteriorly in the lower pole, as well as tiny hypodensity towards the inferior tip of the left kidney, all appear stable compared to the prior examination. No enhancing mass identified. Kidne ys excrete contrast bilaterally without evidence of hydronephrosis. STOMACH AND BOWEL: Visualized stomach and small bowel loops are nondistended, contrast traverses the visible small bowel without evidence of obstruction. Ovoid nodular density adjacent to small bowel lo ops in the upper pelvis partially seen, uncertain etiology but could represent diverticulum. Appendix likely not in the scope of this exam. Mild/moderate stool throughout the visualized portions of the colon. PERITONEUM/RETROPERITONEUM: No evidence of pneumoperitoneum or free fluid. VASCULATURE: Moderate atherosclerotic calcifications are present throughout the abdominal aorta and i ts branches. No evidence of aortic aneurysm. MUSCULOSKELETAL: Moderate degenerative changes of the visualized spine with mild scoliotic curvature. Straightening of the normal lumbar lordosis. Suspect at least mild to moderate canal and neural fora ash stenoses greatest at the L1-L2, L2-L3, L3-L4 levels. LYMPH NODES: No gross evidence for lymphadenopathy. SOFT TISSUE/ABDOMINAL WALL: Unremarkable IMPRESSION: 1. Continued stable left renal hypodensities, consistent with cysts. 2. Patulous distal esophagus, containing a small amount of contrast which could be from reflux or dy smotility. 3. Cholelithiasis.
== END | disposition home or self-care (01) ==
LOC: RADCTMAIN 07:52
PROVIDERS: ATTEND Urology
DX: D41.02 Neoplasm of uncertain behavior of left kidney (principal); K80.20 Calculus of gallbladder without cholecystitis without obstruction; N28.89 Other specified disorders of kidney and ureter
CPT/HCPCS: 82565; 84520; 74170; 36415; Q9967

== ENCOUNTER 2023-06-22 12:28 | Day surgery (SDC) | payer MEDICARE, OTHER ==
[2023-06-22] MEDS: LACTATED RINGERS 1,000 ML IV SCH (13:22)
[2023-06-22 13:58] LABS: Glucose,Whole Blood 119 mg/dL (70-110)
[2023-06-22 14:08] VITALS: TEMP 97.4
[2023-06-22] MEDS ORDERED: LIDOCAINE 1% INJ 10MG/ML (20 ML MDV) ONE (14:18)
[2023-06-22] MEDS ORDERED: PROPOFOL 10 MG/ML 20 ML VIAL IV ONE (14:18)
--- NOTE | 2023-06-22 14:44 | P.PCN ---
Date of Procedure: 06/22/23 Procedure(s) Performed: BRIEF HISTORY: Patient is a 78-year-old, pleasant, white female scheduled for an upper endoscopy as part of evaluation of dysphagia for the last 5 days duration. Patient was diagnosed with esophageal achalasia in 2020 and she is status post laparoscopic Heller's myotomy at [facility]. She is been having intermittent dysphagia for the last few months but much worse for the last 1 week.. PROCEDURE PERFORMED: Esophagogastroduodenoscopy. PREOPERATIVE DIAGNOSIS: Dysphagia/History of esophageal achalasia. IV sedation per anesthesia. PROCEDURE: After informed consent was obtained, the patient was brought into the endoscopy unit. IV sedation was administered by Anesthesia under continuous monitoring. Initially the Olympus GIF-140 video endoscope was inserted into the mouth. Esophagus intubated without any difficulty. It was gradually advanced into the Esophagus and there was large amount of retained solid food noted in the distal esophagus. The scope was then advanced into thestomach and duodenum and carefully examined. The bulb and the second part of the duodenum appeared normal. The scope at this time was withdrawn to the stomach, adequately insufflated with air, and upon careful examination, mucosa of the antrum, body, cardia and the fundus appeared normal. The scope was then withdrawn into the esophagus. The GE junction was located at 39 cm from the incisors. There was no evidence of esophageal stricture noted. There was large amount of food noted in the distal esophagus and this was gently pushed using the scope into the stomach.The esophagus appeared normal. There were no erosions or ulcerations seen and the patient tolerated the procedure well. IMPRESSION: 1.Dilated esophagus with significant amount of retained solid food in the distal esophagus which was pushed into the stomach using the scope. 2.No esophageal stricture noted.. RECOMMENDATIONS: The findings of this examination were discussed with the patient as well as a family. She was advised to start on a soft diet and see how she tolerates. Follow up in office in 2-3 weeks. If she continues to have persistent symptoms she'll be referred to [facility] for further management.
[2023-06-22 15:32] VITALS: BP 145/81; PULSE 79; RESP 16
== END 2023-06-22 15:21 | disposition home or self-care (01) ==
LOC: ORWHC2ENDO 12:28
PROVIDERS: ATTEND Internal Medicine Gastroenterology
DX: K22.0 Achalasia of cardia (principal); E78.5 Hyperlipidemia, unspecified; G47.33 Obstructive sleep apnea (adult) (pediatric); E11.9 Type 2 diabetes mellitus without complications; M19.90 Unspecified osteoarthritis, unspecified site; F12.90 Cannabis use, unspecified, uncomplicated; Z79.82 Long term (current) use of aspirin; Z79.899 Other long term (current) drug therapy; Z88.8 Allergy status to other drugs, medicaments and biological substances
CPT/HCPCS: 43235; J2001; J2704

== ENCOUNTER → 2023-08-29 | Outpatient (CLI) | payer MEDICARE, OTHER ==
--- NOTE | 2023-08-29 17:57 | XR ---
EXAMINATION TYPE: XR bone survey complete DATE OF EXAM: 08/29/2023 1:46 PM CLINICAL INDICATION:Female, 78 years old with history of M19.90 UNSPECIFIED OSTEOARTHRITIS, UNSPECIFI ED SIT; COMPARISON: None TECHNIQUE: Several radiographics images of the axial and appendicular spine were obtained in multipl e projections. FINDINGS: Skull: No lytic or sclerotic lesions are identified. Spine: No lytic or sclerotic lesions are identified. The pedicles are intact. There are no fractures, dislocations or subluxations. Multilevel disc degeneration changes with joint space narrowing osteop hyte formation. Chest: No lytic or sclerotic lesions are identified. The ribs have a normal appearance. Abdomen/Pelvis: No lytic or sclerotic lesions are identified. Extremities: No lytic or sclerotic lesions are identified. Degeneration changes of the large joints o f the body with osteophyte formation and joint space narrowing. Right shoulder arthroplasty changes a ppear intact. Right hip arthroplasty changes with hardware intact. Hardware is slightly caudal angula tion medially. IMPRESSION: No evidence for suspicious lytic or osteoblastic lesion.
== END | disposition home or self-care (01) ==
LOC: RADXRMAIN 13:10
PROVIDERS: ATTEND Internal Medicine Hematology & Oncology
DX: D47.2 Monoclonal gammopathy (principal); M19.90 Unspecified osteoarthritis, unspecified site; E11.22 Type 2 diabetes mellitus with diabetic chronic kidney disease; N18.9 Chronic kidney disease, unspecified
CPT/HCPCS: 77075

== ENCOUNTER → 2023-11-09 | Outpatient (CLI) | payer MEDICARE, OTHER ==
--- NOTE | 2023-11-09 10:09 | US ---
EXAMINATION TYPE: US carotid duplex BILAT DATE OF EXAM: 11/09/2023 COMPARISON: NONE CLINICAL INDICATION: Female, 78 years old with history of Z13.6 ENCOUNTER FOR SCREENING FOR CARDIOVAS CULAR D; No HTN or hx of TIA. TECHNIQUE: Carotid duplex ultrasound examination. Indirect Doppler criteria was utilized. FINDINGS: EXAM MEASUREMENTS: RIGHT: Peak Systolic Velocity (PSV) cm/sec ----- Right CCA: 86.4 ----- Right ICA: 78.7 ----- Right ECA: 76.5 ICA/CCA ratio: 0.9 RIGHT: End Diastole cm/sec ----- Right CCA: 21.5 ----- Right ICA: 24.8 ----- Right ECA: 7.3 LEFT: Peak Systolic Velocity (PSV) cm/sec ----- Left CCA: 78.7 ----- Left ICA: 89.7 ----- Left ECA: 117.3 ICA/CCA ratio: 1.1 LEFT: End Diastole cm/sec ----- Left CCA: 16.0 ----- Left ICA: 35.8 ----- Left ECA: 13.7 VERTEBRALS (direction of flow): Right Vertebral: Antegrade Left Vertebral: Antegrade Rhythm: Normal FRUIT OR NUT GROWER NOTES: No elevated velocities or wall thickening. Plaque in left bulb. IMPRESSION: No significant hemodynamic stenosis identified. Criteria for Assigning % of Stenosis / Diameter reduction (Estimation based on the indirect measurements of the internal carotid artery velocities (ICA PSV). 1. Normal (no stenosis)=ICA PSV < 125 cm/s: ratio < 2.0: ICA EDV<40 cm/s. 2. Less than 50% stenosis=ICA PSV < 125 cm/s: ratio < 2.0: ICA EDV<40 cm/s. 3. 50 to 69% stenosis=ICA PSV of 125 to 230 cm/s: ration 2.0 ? 4.0: ICA EDV 40-100 cm/s. 4. Greater than 70% stenosis to near occlusion= ICA PSV > 230 cm/s: ratio > 4.0: ICA EDV > 100 cm/s. 5. Near occlusion= ICA PSV velocities may be low or undetectable: variable ratio and ICA EDV. 6. Total occlusion=unable to detect flow.
--- NOTE | 2023-11-09 10:18 | US ---
EXAMINATION TYPE: US Aorta Screening DATE OF EXAM: 11/09/2023 COMPARISON: NONE CLINICAL INDICATION: Female, 78 years old with history of Z13.6 ENCOUNTER FOR SCREENING FOR CARDIOVAS CULAR D; TECHNIQUE: Multiple sonographic images of the abdominal aorta are obtained. FINDINGS: EXAM MEASUREMENTS: Abdominal Aorta: Proximal: 1.8 x 1.5 cm Mid: 1.5 x 1.4 cm Distal: 1.4 x 1.8 cm Bifurcation: Right Iliac: 1.0 x 1.2 cm Left Iliac: 1.1 x 1.1 cm PAYROLL ANALYST NOTES: No AAA visualized at time of scan IMPRESSION: No sonographic evidence of aortic aneurysm.
--- NOTE | 2023-11-11 16:39 | BD ---
EXAMINATION TYPE: Axial Bone Density DATE OF EXAM: 11/09/2023 CLINICAL HISTORY: 78 years old Female. ICD-10 CODE: M85.88 OSTEOPENIA Height: 5 ft 3 in Weight: 171 FRAX RISK QUESTIONS: Alcohol (3 or more units per day): no Family History (Parent hip fracture): no Glucocorticoids (More than 3mos): no (Ex: prednisone, prednisolone, methylprednisolone, dexamethasone, and hydrocortisone). History of Fracture in Adulthood: yes Secondary Osteoporosis: 1. Type 1 Diabetes: type 2 2. Hyperthyroidism: no 3. Menopause before 45: no 4. Malnutrition: no 5. Chronic liver disease: no Rheumatoid Arthritis: no Current Tobacco Use: no RISK FACTORS HISTORY OF: Surgery to Spine/Hip(right/left)/Wrist (right/left): rt hip replaced MEDICATIONS: Thyroid Medications: none Osteoporosis Medications: none EXAM MEASUREMENTS: Bone mineral densitometry was performed using the Viximo System. Bone mineral density as measured about the Lumbar spine is: ----- L1-L4(G/cm2): 1.607 T Score Values are as follows: ----- L1: 1.8 ----- L2: 3.3 ----- L3: 5.1 ----- L4: 3.5 ----- L1-L4: 3.6 Z Score Values are as follows: ----- L1: 3.1 ----- L2: 4.6 ----- L3: 6.5 ----- L4: 4.9 ----- L1-L4: 4.9 Bone mineral density has: increased 10.0 % since study of: 2012 Bone mineral density about the L hip (g/cm2): 0.923 T Score values are as follows: -----L Neck: -0.8 -----L Total: 0.6 Z Score values are as follows: -----L Neck: 0.9 -----L Total: 2.1 Bone mineral density has: decreased -7.1 % since study of: 2013 FRAX%s: The graph provided illustrates a 14.6 % chance for a major osteoporotic fx and a 2.0 % chance for the hips probability for fx in 10 years time. IMPRESSION: Normal (Values between +1 and -1 indicate normal bone mass). Consider repeating this study in 5 year s or sooner if there is some new clinical indication. NOTE: T-SCORE=SD OF THE YOUNG ADULT MEAN.
--- NOTE | 2023-11-13 11:59 | MM ---
Reason for Exam: Screening (asymptomatic). Last mammogram was performed 5 year(s) and 3 month(s) ago. Patient History: Menarche at age 15. First Full-Term at age 22. Postmenopausal. Estrogen, starting at age 57 for 8 years, 2 months. Progesterone, starting at age 57 for 8 years, 2 months. Risk Values: Susan 5 year model risk: 1.6%. NCI Lifetime model risk: 3.2%. Prior Study Comparison: 07/01/2016 Screening Mammogram, [facility]. 07/12/2017 Bilateral Screening Mammogram, [facility]. 08/08/2018 Bilateral Screening Mammogram, [facility]. Tissue Density: The breasts are almost entirely fatty. Findings: Analyzed By CAD. Right breast: There is no suspicious group of microcalcifications or new suspicious mass. Left breast: There is no suspicious group of microcalcifications or new suspicious mass. Overall Assessment: Negative, BI-RAD 1 Management: Screening Mammogram of both breasts in [address] [facility] will attempt to contact patient to return for supplemental views and ultrasound if indicated. Patient should continue monthly self-breast exams. A clinical breast exam by your physician is recommended on an annual basis. This exam should not preclude additional follow-up of suspicious palpable abnormalities. Note on Susan scores and lifetime risk: 1. A Susan score greater than 3% is considered moderate risk. If this is the case, consider specialist referral to assess eligibility for a risk reducing agent. 2. If overall lifetime risk for the development of breast cancer is 20% or higher, the patient may qualify for future screening with alternating mammogram and breast MRI. Electronically signed and approved by: Micah Monreal DO
== END | disposition home or self-care (01) ==
LOC: RADUSWWP 08:19
PROVIDERS: ATTEND Internal Medicine
DX: Z12.31 Encounter for screening mammogram for malignant neoplasm of breast (principal); Z13.6 Encounter for screening for cardiovascular disorders; I65.23 Occlusion and stenosis of bilateral carotid arteries; M85.88 Other specified disorders of bone density and structure, other site; E10.9 Type 1 diabetes mellitus without complications; Z78.0 Asymptomatic menopausal state
CPT/HCPCS: 76706; 77063; 77067; 77080; 93880

== ENCOUNTER 2024-05-23 17:58 | Emergency (ER) | payer MEDICARE, OTHER ==
[2024-05-23 18:25] VITALS: RESP 18; TEMP 98.2
--- NOTE | 2024-05-23 19:10 | ED ---
General Adult HPI - General Chief complaint: Extremity Injury, Upper Stated complaint: R shoulder pain Time Seen by Provider: 05/23/24 18:28 Source: patient, RN notes reviewed Mode of arrival: ambulatory Limitations: no limitations - History of Present Illness Initial comments: 79-year-old female presents to the emergency department for evaluation of right shoulder pain x 5 days. Patient states that this is in the anterior right shoulder. States the pain is sharp stabbing pain. She notes that it is worse with movement. She has a history of a reverse shoulder replacement about 5 years ago. Denies any known fever, chills. Denies any overlying skin changes. - Related Data Home Medications Medication Instructions Recorded Confirmed Aspirin EC [Ecotrin Low Dose] 81 mg PO DAILY 11/25/14 06/21/23 Atorvastatin [Lipitor] 40 mg PO HS 11/25/14 06/21/23 Cholecalciferol [Vitamin D3 (25 2,000 unit PO MOWEFR 11/25/14 06/21/23 Mcg = 1000 Iu)] Losartan [Cozaar] 50 mg PO QAM 11/25/14 06/21/23 Multivitamins, Thera [Multivitamin 1 each PO DAILY@1200 11/25/14 06/21/23 (formulary)] Ubidecarenone [Co Q-10] 1 tab PO DAILY 08/08/18 06/21/23 L.acidoph,Paracasei, B.lactis 1 each PO DAILY 01/01/20 06/21/23 [Probiotic] Travoprost [Travatan Z 0.004%] 1 drop BOTH EYES DAILY 01/06/21 06/22/23 Omeprazole 40 mg PO HS 05/27/22 06/21/23 Magnesium 400 mg PO DAILY 06/21/23 06/21/23 Tirzepatide [Mounjaro] 2.5 mg SQ 06/21/23 Previous Rx's Medication Instructions Recorded Lidocaine 5% Patch [Lidoderm 5% 1 patch TOPICAL DAILY #30 patch 05/23/24 Patch] Allergies Allergy/AdvReac Type Severity Reaction Status Date / Time Beta-Blockers Allergy Swelling Verified 05/23/24 18:25 (Beta-Adrenergic Bloc Review of Systems ROS Statement: Those systems with pertinent positive or pertinent negative responses have been documented in the HPI. ROS Other: All systems not noted in ROS Statement are negative. Past Medical History Past Medical History: Diabetes Mellitus, Eye Disorder, Hyperlipidemia, Osteoarthritis (OA), Sleep Apnea/CPAP/BIPAP Additional Past Medical History / Comment(s): chronic proteinuria - last test was good, essential tremor, treated on right side, still has on left side, 'slight leak' for the mitral valve prolapse, trigger finger Dupuytren's disease, takes Losartan for her kidneys., Hx. of Achalasia History of Any Multi-Drug Resistant Organisms: None Reported Past Surgical History: Back Surgery, Bladder Surgery, Joint Replacement, Orthopedic Surgery, Tubal Ligation Additional Past Surgical History / Comment(s): EGD ON 01/02/20. 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 General Exam Limitations: no limitations General appearance: alert, in no apparent distress Head exam: Present: atraumatic, normocephalic, normal inspection Eye exam: Present: normal appearance, PERRL, EOMI. Absent: scleral icterus, conjunctival injection, periorbital swelling ENT exam: Present: normal exam, mucous membranes moist Neck exam: Present: normal inspection. Absent: tenderness, meningismus, lymphadenopathy Respiratory exam: Present: normal lung sounds bilaterally. Absent: respiratory distress, wheezes, rales, rhonchi, stridor Cardiovascular Exam: Present: regular rate, normal rhythm, normal heart sounds. Absent: systolic murmur, diastolic murmur, rubs, gallop, clicks Extremities exam: Present: tenderness (Right anterior shoulder tenderness palpation), normal capillary refill, other (Radial pulses 2+). Absent: full ROM (Decreased range of motion due to pain) Neurological exam: Present: alert, oriented X3 Psychiatric exam: Present: normal affect, normal mood Skin exam: Present: warm, dry, intact, normal color. Absent: rash Course Vital Signs 05/23/24 05/23/24 18:18 20:05 Temperature 98.2 F Pulse Rate 79 98 Respiratory 18 Rate Blood Pressure 145/71 139/78 O2 Sat by Pulse 99 100 Oximetry Medical Decision Making - Medical Decision Making Was pt. sent in by a medical professional or institution (, [facility], SENIOR PROCESS ENGINEER, urgent care, hospital, or retirement...) When possible be specific @ -[No] Did you speak to anyone other than the patient for history (EMS, parent, family, police, friend...)? What history was obtained from this source @ -[No] Did you review nursing and triage notes (agree or disagree)? Why? @ -[I reviewed and agree with nursing and triage notes] Were old charts reviewed (outside hosp., previous admission, EMS record, old EKG, old radiological studies, urgent care reports/EKG's, retirement records)? Report findings @ -[No old charts were reviewed] Differential Diagnosis (chest pain, altered mental status, abdominal pain women, abdominal pain men, vaginal bleeding, weakness, fever, dyspnea, syncope, headache, dizziness, GI bleed, back pain, seizure, CVA, palpatations, mental health, musculoskeletal)? @ -Differential Musculoskeletal Muscular strain, contusion, ligament sprain, fracture, arthritis, septic arthritis, bursitis, cellulitis, muscle spasm, nerve compression, DVT, arterial occlusion, herpes zoster, electrolyte abnormality, tumor.... This is not meant to be in all inclusive list EKG interpreted by me (3pts min.). @ -None X-rays interpreted by me (1pt min.). @ -[None done] CT interpreted by me (1pt min.). @ -[None done] U/S interpreted by me (1pt. min.). @ -[None done] What testing was considered but not performed or refused? (CT, X-rays, U/S, labs)? Why? @ -[None] What meds were considered but not given or refused? Why? @ -[None] Did you discuss the management of the patient with other professionals (professionals i.e. MEHNAZ Porter, SENIOR PROCESS ENGINEER, lab, RT, psych nurse, psychologist social, precision lens generator, teacher, control officer, disease case manager rn)? Give summary @ -[No] Was smoking cessation discussed for >3mins.? @ -[No] Was critical care preformed (if so, how long)? @ -[No] Were there social determinants of health that impacted care today? How? (Homelessness, low income, unemployed, alcoholism, drug addiction, transpo rtation, low edu. Level, literacy, decrease access to med. care, custodial, rehab)? @ -[No] Was there de-escalation of care discussed even if they declined (Discuss DNR or withdrawal of care, Hospice)? DNR status @ -[No] What co-morbidities impacted this encounter? (DM, HTN, Smoking, COPD, CAD, Cancer, CVA, ARF, Chemo, Hep., AIDS, mental health diagnosis, sleep apnea, morbid obesity)? @ -[None] Was patient admitted / discharged? Hospital course, mention meds given and route, prescriptions, significant lab abnormalities, going to OR and other pertinent info. @ -[hospital course] Undiagnosed new problem with uncertain prognosis? @ -[No] Drug Therapy requiring intensive monitoring for toxicity (Heparin, Nitro, Insulin, Cardizem)? @ -[No] Were any procedures done? @ -[No] Diagnosis/symptom? @ -[default] Acute, or Chronic, or Acute on Chronic? @ -[default] Uncomplicated (without systemic symptoms) or Complicated (systemic symptoms)? @ -[default] Side effects of treatment? @ -[No] Exacerbation, Progression, or Severe Exacerbation? @ -[No] Poses a threat to life or bodily function? How? (Chest pain, USA, IA, pneumonia, PE, COPD, DKA, ARF, appy, cholecystitis, CVA, Diverticulitis, Homicidal, Suicidal, threat to staff... and all critical care pts) @ -[No] Disposition Clinical Impression: Status post total replacement of right shoulder, Right shoulder pain Disposition: HOME SELF-CARE Condition: Stable Instructions (If sedation given, give patient instructions): Osteoarthritis (ED) Additional Instructions: Please follow up with Dr. Wesley as scheduled. Return to the emergency department for new or worsening symptoms. Is patient prescribed a controlled substance at d/c from ED?: No Referrals: Mark Goldsmith MD [Primary Care Provider] - 1-2 days
[2024-05-23] MEDS: KETOROLAC 15 MG/ML 1 ML VIAL IM STA (19:13)
--- NOTE | 2024-05-23 19:29 | XR ---
EXAMINATION TYPE: XR shoulder complete RT DATE OF EXAM: 05/23/2024 7:24 PM COMPARISON: Previous radiograph 03/14/2019. CLINICAL INDICATION: Female, 79 years old with history of pain; PHH, pain TECHNIQUE: XR shoulder complete RT; examined in AP, internally rotated and scapular Y projections. FINDINGS: Right shoulder arthroplasty without periprosthetic loosening or acute fracture. Humeral component thomas ears to articulate with the glenoid component without dislocation. Osseous structures are demineraliz ed. Partially visualized right lung appears clear. Severe hypertrophic degenerative arthritic changes of the right acromioclavicular joint. IMPRESSION: 1. No acute fracture or evidence of acute hardware failure. 2. Severe hypertrophic degenerative osteophytic changes of the acromioclavicular joint. [facility], , 05/23/2024 7:26 PM
[2024-05-23 20:06] VITALS: BP 139/78; PULSE 98
[2024-05-23] MEDS: ACET/COD 300 MG/30 MG STARTER PACK 6 TAB BTL PO STA (20:31)
== END 2024-05-23 20:50 | disposition home or self-care (01) ==
LOC: EC 17:58
DX: M25.511 Pain in right shoulder (principal); Z96.611 Presence of right artificial shoulder joint; Z88.8 Allergy status to other drugs, medicaments and biological substances
CPT/HCPCS: 73030; 99283; 96372; J1885

== ENCOUNTER → 2024-06-12 | Outpatient (CLI) | payer MEDICARE, OTHER ==
--- NOTE | 2024-06-12 13:33 | US ---
EXAMINATION TYPE: US kidneys/renal and bladder DATE OF EXAM: 06/12/2024 COMPARISON: US 01/12/2022 CLINICAL INDICATION: Female, 79 years old with history of N18.1 CHRONIC KIDNEY DISEASE, STAGE 1; TECHNIQUE: Grayscale imaging of the bilateral kidneys and urinary bladder: FINDINGS: EXAM MEASUREMENTS: Right Kidney: 9.5x5.9x6.2cm Left Kidney: 9.1x6.2x5.3cm limited exam due to pt body habitus & overlying bowel Right Kidney: No hydronephrosis or masses seen Left Kidney: No hydronephrosis or masses seen Bladder: wnl Bilateral Jets seen: Yes IMPRESSION: 1. No acute renal ultrasound abnormality. [facility], , 06/12/2024 1:30 PM
== END | disposition home or self-care (01) ==
LOC: RADUSWWP 12:47
PROVIDERS: ATTEND Internal Medicine Nephrology
DX: N18.1 Chronic kidney disease, stage 1 (principal)
CPT/HCPCS: 76770